=== PATIENT | male | born 1950 | race Caucasian/White ===

== ENCOUNTER 2017-07-26 16:02 | Emergency (ER) | payer MEDICAID ==
--- NOTE | 2017-07-26 16:25 | EDPHY ---
H & P Stated Complaint: N/V, not feeling well x 1 hr; last ETOH last night Time Seen by Provider: 07/26/17 16:24 - Personal History Current Tetanus Diphtheria and Acellular Pertussis (TDAP): Unsure - Medical/Surgical History Hx Asthma: No Hx Chronic Respiratory Disease: No Hx Diabetes: No Hx Cardiac Disease: No Hx Renal Disease: No Hx Cirrhosis: No Hx Alcoholism: Yes Hx HIV/AIDS: No Hx Splenectomy or Spleen Trauma: No Other PMH: testicular surg to remove cyst. ?etoh abuse - Social History Smoking Status: Never smoked Constitutional: Initial Vital Signs Temperature (C) 36.7 C 07/26/17 16:10 Heart Rate 120 H 07/26/17 16:10 Respiratory Rate 18 07/26/17 16:10 Blood Pressure 94/67 L 07/26/17 16:10 O2 Sat (%) 95 07/26/17 16:10 O2 Delivery Mode Room Air Allergies/Adverse Reactions: No Known Allergies Allergy (Verified 07/26/17 16:17) Home Medications: Medication Instructions Recorded NK [No Known Home Meds] 07/26/17 Medical Decision Making ED Course/Re-evaluation: CHIEF COMPLAINT: Nausea, vomiting, weakness HISTORY OF PRESENT ILLNESS: The patient is a 66 y/o male with a history of alcohol abuse complaining of nausea, vomiting, and weakness since waking this morning. He admits to drinking a pint of tequila last night after eating lasagna delivered by [employer]. He's felt poor all morning and has continued to vomit. He now feels shaky and weak. Symptoms feel similar to prior episodes of alcohol withdrawal. He denies co-ingestions, recent illness, recent trauma. REVIEW OF SYSTEMS: A 10 point review of systems was performed and is negative with the exception of the elements mentioned in the history of present illness. PHYSICAL EXAM: HR 115, BP, O2 Sat, RR. Temp noted General Appearance: Alert, appropriate, frail, tremulousness. Head: Atraumatic without scalp tenderness or obvious injury Eyes: Pupils equal, round, reactive to light and accommodation, EOMI, no trauma , no injection. Nose: Atraumatic, no rhinorrhea, clear. Throat: There is no erythema or exudates, no lesions, normal tonsils, mucus membranes moist. Neck: Supple Respiratory: No retractions, no distress, no wheezes, and no accessory muscle use. Lungs are clear to auscultation bilaterally. Cardiovascular: Tachycardic regular rate and rhythm, no murmurs, rubs, or gallops. Good capillary refill all extremities. Gastrointestinal: Abdomen is soft, nontender, non-distended, no masses, no rebound, no guarding, no peritoneal signs. Musculoskeletal: Normal active ROM of all extremities, atraumatic. Neurological: Alert, appropriate, and interactive. The patient non-focal cranial nerves, motor, sensory, and cerebellar exam. Tremulous Skin: No rashes, good turgor, no nodules on palpation. Past medical history: Alcohol abuse Past surgical history: testicular surgery to remove cyst Family history: noncontributory Social history: Lives at [facility] in [place]. Disabled. Prior medical records reviewed including ED visit 11/20/15 for anxiety, nausea. DIAGNOSTICS/PROCEDURES/CRITICAL CARE TIME: The 12 lead EKG was interpreted by myself. Sinus tachycardia. No ischemia. See hard copy and/or "tracemaster" electronic copy for interpretation. DIFFERENTIAL DIAGNOSIS: The differential diagnosis for the patient's nausea and vomiting included but was not limited to gastroenteritis, gastritis, appendicitis, and medication side effect. MEDICAL DECISION MAKING: This is a chronically-ill appearing 66 y/o male with alcoholism who presents with several hours of nausea, vomiting, and tremulousness after drinking a pint of vodka last night. He is tremulous and tachycardic and vomited just as I walked into the room. Abdomen is benign. Presentation seems consistent with alcohol withdrawal, but will rule out cardiac causes as well with IV, labs, EKG. Symptomatic treatment with 1mg IV Ativan, 4mg IV Zofran, 1L IV NS. Labs are unremarkable. Patient is feeling improved after medication administration. I've offered discharge to the [facility] for detox. - Data Points Laboratory Results: Laboratory Results 07/26/17 17:40 07/26/17 17:40 07/26/17 07/26/17 07/26/17 17:40 17:40 17:40 WBC 5.80 10^3/uL 10^3/uL (3.80-9.50) RBC 3.57 10^6/uL L 10^6/uL (4.40-6.38) Hgb 12.6 g/dL L g/dL (13.7-17.5) Hct 36.6 % L % (40.0-51.0) MCV 102.5 fL H fL (81.5-99.8) MCH 35.3 pg H pg (27.9-34.1) MCHC 34.4 g/dL g/dL (32.4-36.7) RDW 13.5 % % (11.5-15.2) Plt Count 168 10^3/uL 10^3/uL (150-400) MPV 11.4 fL fL (8.7-11.7) Neut % (Auto) 62.7 % % (39.3-74.2) Lymph % (Auto) 21.7 % % (15.0-45.0) Nash % (Auto) 11.7 % % (4.5-13.0) Eos % (Auto) 2.6 % % (0.6-7.6) Baso % (Auto) 1.0 % % (0.3-1.7) Nucleat RBC Rel Count 0.0 % % (0.0-0.2) Absolute Neuts (auto) 3.63 10^3/uL 10^3/uL (1.70-6.50) Absolute Lymphs (auto) 1.26 10^3/uL 10^3/uL (1.00-3.00) Absolute Monos (auto) 0.68 10^3/uL 10^3/uL (0.30-0.80) Absolute Eos (auto) 0.15 10^3/uL 10^3/uL (0.03-0.40) Absolute Basos (auto) 0.06 10^3/uL 10^3/uL (0.02-0.10) Absolute Nucleated RBC 0.00 10^3/uL 10^3/uL (0-0.01) Immature Gran % 0.3 % % (0.0-1.1) Immature Gran # 0.02 10^3/uL 10^3/uL (0.00-0.10) PT 13.0 SEC SEC (12.0-15.0) INR 0.96 (0.83-1.16) APTT 25.7 SEC SEC (23.0-38.0) Sodium 147 mEq/L H mEq/L (135-145) Potassium 4.4 mEq/L mEq/L (3.5-5.2) Chloride 109 mEq/L mEq/L (97-110) Carbon Dioxide 18 mEq/l L mEq/l (22-31) Anion Gap 20 mEq/L H mEq/L (8-16) BUN 15 mg/dL mg/dL (7-23) Creatinine 0.8 mg/dL mg/dL (0.7-1.3) Estimated GFR > 60 Glucose 66 mg/dL L mg/dL (70-100) Calcium 9.5 mg/dL mg/dL (8.5-10.4) Total Bilirubin 0.5 mg/dL mg/dL (0.1-1.4) Conjugated Bilirubin 0.4 mg/dL mg/dL (0.0-0.5) Unconjugated Bilirubin 0.1 mg/dL mg/dL (0.0-1.1) AST 56 IU/L IU/L (17-59) ALT 53 IU/L IU/L (21-72) Alkaline Phosphatase 72 IU/L IU/L (38-126) Total Protein 8.3 g/dL H g/dL (6.3-8.2) Albumin 4.7 g/dL g/dL (3.5-5.0) Lipase 337 IU/L H IU/L (23-300) Medications Given: Discontinued Medications Sodium Chloride (Ns) 1,000 mls @ 0 mls/hr IV ONCE ONE PRN Reason: Wide Open Stop: 07/26/17 16:33 Last Admin: 07/26/17 16:48 Dose: 1,000 mls Lorazepam (Ativan Injection) 1 mg IVP EDNOW ONE Stop: 07/26/17 16:33 Last Admin: 07/26/17 16:48 Dose: 1 mg Ondansetron HCl (Zofran) 4 mg IVP EDNOW ONE Stop: 07/26/17 16:33 Last Admin: 07/26/17 16:46 Dose: 4 mg Departure - Departure Disposition: Home, Routine, Self-Care Clinical Impression: Nausea and vomiting Qualifiers: Vomiting type: unspecified Vomiting Intractability: non-intractable Qualified Code(s): R11.2 - Nausea with vomiting, unspecified Alcohol withdrawal Qualifiers: Complication of substance-induced condition: uncomplicated Qualified Code(s): F10.230 - Alcohol dependence with withdrawal, uncomplicated Condition: Good Instructions: Acute Nausea and Vomiting (ED), Alcohol Withdrawal (ED) Additional Instructions: Avoid abuse of alcohol. Follow up with the [facility] for detox. Referrals: [facility] [Outside] - As per Instructions [facility] [Outside] - As per Instructions Report Scribed for: Claudio Conway Report Scribed by: Xiao Rose Date of Report: 07/26/17 Time of Report: 16:44
[2017-07-26] MEDS ORDERED: NS 1,000 ML IV ONE (16:32)
[2017-07-26] MEDS ORDERED: ONDANSETRON 4 MG/2 ML VIAL IVP ONE (16:32)
[2017-07-26] MEDS ORDERED: LORazepam 2 MG/ML INJ IVP ONE (16:32)
--- NOTE | 2017-07-26 16:42 | CPEKG ---
Heart Rate: 102 RR Interval: 588 P-R Interval: 192 QRSD Interval: 106 QT Interval: 372 QTC Interval: 485 P [place]: 57 QRS [place]: -51 T Wave [place]: 50 EKG Severity - ABNORMAL ECG - EKG Impression: SINUS TACHYCARDIA EKG Impression: ATRIAL PREMATURE COMPLEX EKG Impression: LEFT ANTERIOR FASCICULAR BLOCK EKG Impression: BORDERLINE PROLONGED QT INTERVAL Electronically Signed By: Claudio Conway 26-Jul-2017 21:53:52
[2017-07-26 18:10] LABS: PLATELET COUNT 168 10^3/uL (150-400)
[2017-07-26 18:17] LABS: INR 0.96 (0.83-1.16)
[2017-07-26 18:42] VITALS: TEMP 98.4
[2017-07-26 18:44] VITALS: BP 141/82; PULSE 101; RESP 20; O2SAT 97
== END 2017-07-26 19:00 | disposition home or self-care (01) ==
DX: F10.230 Alcohol dependence with withdrawal, uncomplicated (principal)
CPT/HCPCS: 96374; J2060; J2405

== ENCOUNTER 2017-08-07 18:33 | Emergency (ER) | payer MEDICAID ==
[2017-08-07 18:39] VITALS: TEMP 97.7
--- NOTE | 2017-08-07 18:45 | EDPHY ---
H & P Smoking Status: Never smoked Time Seen by Provider: 08/07/17 18:35 HPI/ROS: CHIEF COMPLAINT: Alcohol intoxication, fall, facial trauma HISTORY OF PRESENT ILLNESS: 66-year-old male presents to the emergency department by ambulance after he fell off of a set of bleachers landing on his face. Apparently the patient does not recall the fall. He does admit to drinking alcohol today. Unknown loss of consciousness. Patient denies a headache. Denies chest pain or difficulty breathing. Denies abdominal pain. No reports of vomiting. No visual symptoms. REVIEW OF SYSTEMS: Constitutional: No fever, no chills. Eyes: No double or blurry vision. ENT: No sore throat. Respiratory: No cough, no shortness of breath. Cardiac: No chest pain. Gastrointestinal: No abdominal pain, vomiting or diarrhea. Genitourinary: No dysuria. Musculoskeletal: No neck or back pain. Skin: Facial abrasions. No rashes. Neurological: No headache. (Lazara Toledo) Past Medical/Surgical History: Alcoholism (Lazara Toledo) Social History: Single and lives in [place] (Lazara Toledo) Physical Exam: General Appearance: Alert, no distress. Smells strongly of alcohol. Superficial abrasion noted to the anterior aspect of his nose. He has some dried blood in both the left and the right nostril. No active bleeding from his nose. He also has an abrasion noted to the lateral aspect of the right eye and lateral aspect of his right eyebrow. No suturable lacerations noted. Eyes: Pupils equal and round. Extraocular motions are all intact. ENT: Mouth: Mucous membranes moist. No hemotympanum. Poor dentition. No acute dental fractures noted. No malocclusion. Respiratory: No wheezing, rhonchi, or rales, lungs are clear to auscultation. Cardiovascular: Regular rate and rhythm. Gastrointestinal: Abdomen is soft and nontender, no masses, no rebound or guarding, bowel sounds normal. Neurological: Uncooperative, cannot determine. Skin: Warm and dry, no rashes. Musculoskeletal: Nontender to palpate along the cervical, thoracic or lumbar spine. Neck is supple. Extremities: Full range of motion and no peripheral edema. Psychiatric: no agitation. (Lazara Toledo M) Constitutional: Initial Vital Signs Temperature (C) 36.5 C 08/07/17 18:38 Heart Rate 98 08/07/17 18:38 Respiratory Rate 18 08/07/17 18:38 Blood Pressure 139/94 H 08/07/17 18:38 O2 Sat (%) 98 08/07/17 18:38 O2 Delivery Mode Room Air Allergies/Adverse Reactions: No Known Allergies Allergy (Verified 08/07/17 18:40) Home Medications: Medication Instructions Recorded NK [No Known Home Meds] 07/26/17 Medical Decision Making - Diagnostics Imaging: Discussed imaging studies w/ callisthenics instructor Radiologist - Diagnostics Imaging Results: Imaging Impressions Cervical Spine CT 08/07/17 18:45 Impression: Head CT: 1. No acute intracranial abnormalities. 2. Small right frontal scalp hematoma. 3. Moderate generalized volume loss, more than expected for age. 4. Moderate supratentorial white matter microvascular ischemic changes. Cervical Spine: 1. No acute abnormalities. 2. Multilevel degenerative changes, as above. 3. Cannot exclude ligament, spinal cord and/or vascular abnormalities on this exam. If there is persistent pain or neurologic deficit, consider MRI of the cervical spine. Dr. Valero discussed these findings by telephone with LAZARA TOLEDO on at 1946 hours on 08/07/2017. Head CT 08/07/17 18:45 Impression: Head CT: 1. No acute intracranial abnormalities. 2. Small right frontal scalp hematoma. 3. Moderate generalized volume loss, more than expected for age. 4. Moderate supratentorial white matter microvascular ischemic changes. Cervical Spine: 1. No acute abnormalities. 2. Multilevel degenerative changes, as above. 3. Cannot exclude ligament, spinal cord and/or vascular abnormalities on this exam. If there is persistent pain or neurologic deficit, consider MRI of the cervical spine. Dr. Valero discussed these findings by telephone with LAZARA TOLEDO on at 1946 hours on 08/07/2017. ED Course/Re-evaluation: 66-year-old male presents to the emergency department with facial and head injury and alcohol intoxication. CT imaging of the head and cervical spine were negative for intracranial bleeding or fractures. Patient's wounds were cleansed and dressed. No sutures needed. The patient was able to ambulate. He had no complaints. The patient will be discharged. ( Lazara Toledo) Differential Diagnosis: Altered mental status including but not limited to hypoglycemia, infectious process, electrolyte abnormality, head injury and intoxicants. Head injury including but not limited to concussion, skull fracture, intraparenchymal contusion, subarachnoid, subdural and epidural hematoma. (Lazara Toledo) Other Provider: PHYSICIAN DOCUMENTATION: The patient was evaluated and managed by the Physician Copy Writer and myself. I have reviewed the chart and agree with the findings and plan of care as documented. In addition, I examined the patient myself at on arrival. History confirmed as fall from standing. Physical findings as follows: Facial abrasions , alert answers questions appropriately. I am the secondary supervising physician. (Chance Clark) - Data Points Medications Given: Discontinued Medications Chlordiazepoxide (Librium 25 Mg Prepack#6) 1 btl TAKEHOME EDNOW ONE Stop: 08/07/17 20:03 Last Admin: 08/07/17 20:07 Dose: 1 btl Departure - Departure Disposition: Home, Routine, Self-Care Clinical Impression: Facial contusion Qualifiers: Encounter type: initial encounter Qualified Code(s): S00.83XA - Contusion of other part of head, initial encounter Facial abrasion Qualifiers: Encounter type: initial encounter Qualified Code(s): S00.81XA - Abrasion of other part of head, initial encounter Head injury Qualifiers: Encounter type: initial encounter Qualified Code(s): S09.90XA - Unspecified injury of head, initial encounter Alcohol intoxication Qualifiers: Complication of substance-induced condition: uncomplicated Qualified Code(s): F10.920 - Alcohol use, unspecified with intoxication, uncomplicated Cervical strain Qualifiers: Encounter type: initial encounter Qualified Code(s): S16.1XXA - Strain of muscle, fascia and tendon at neck level, initial encounter Condition: Good Instructions: Chlordiazepoxide/Clidinium (By mouth), Cervical Strain (ED), Head Injury (ED), Alcohol Intoxication (ED) Additional Instructions: You should not drink alcohol in excess. You should avoid any activity that might put you at risk for another head injury for at least 1 week. Referrals: [facility] [Outside] - As per Instructions Marko Vicente MD [[facility] [place] Primary Care Provider] - 2-3 days, call for appt. ( Primary care provider donkey engine firer/fireman)
[2017-08-07 19:41] VITALS: BP 123/88; PULSE 93; RESP 20; O2SAT 93
[2017-08-07] MEDS ORDERED: CHLORDIAZEPOXIDE 25MG PREPK#6 BTL TAKEHOME ONE (20:02)
== END 2017-08-07 20:12 | disposition home or self-care (01) ==
LOC: EDUNIT#
DX: S09.90XA Unspecified injury of head, initial encounter (principal); S00.83XA Contusion of other part of head, initial encounter; S00.81XA Abrasion of other part of head, initial encounter; S16.1XXA Strain of muscle, fascia and tendon at neck level, initial encounter; F10.920 Alcohol use, unspecified with intoxication, uncomplicated; W18.39XA Other fall on same level, initial encounter; Y92.89 Other specified places as the place of occurrence of the external cause; Y99.8 Other external cause status; Y93.89 Activity, other specified

== ENCOUNTER 2017-08-09 14:48 | Emergency (ER) | payer MEDICAID ==
[2017-08-09 14:54] VITALS: BP 143/105
--- NOTE | 2017-08-09 15:01 | EDPHY ---
H & P Time Seen by Provider: 08/09/17 14:54 HPI/ROS: CHIEF COMPLAINT: Alcohol intoxication, medical [facility] HISTORY OF PRESENT ILLNESS: 66-year-old male history of homelessness, alcoholism, arrives via police and route to the [facility] however place noticed abrasions to his head and brought him to the ER. Patient explains that he fell 2 days ago. He denies new or injury. The patient was seen the ER at that time had negative CT imaging of the head and cervical spine. He denies complaints of pain or discomfort . No seizure. No hallucination. PRIMARY CARE PROVIDER: REVIEW OF SYSTEMS: A ten point review of systems was performed and is negative with the exception of the items mentioned in the HPI PAST MEDICAL/SURGICAL HISTORY: no anticoagulant use, history of alcoholism. SOCIAL HISTORY: Positive for antecedent alcohol use PHYSICAL EXAM 1) GENERAL: Well-developed, well-nourished, alert and oriented. Appears to be in no acute distress. Answering questions appropriately. 2) HEAD: Normocephalic, multiple subacute abrasions to the forehead and tip of nose 3) HEENT: Pupils equal, round, reactive to light bilaterally. Negative Horners. Nasopharynx, oropharynx, clear. No deformity or angulation of nose. No septal hematoma. No rhinorrhea. No oral trauma. Ears bilaterally with normal tympanic membranes. No hemotympanum. No fluid or blood in the external auditory canal. No raccoon eyes. No Pineda sign. TMJ bilaterally nontender, facial bones nontender including the zygomatic arch, maxilla mandible. 4) NECK: No cervical collar is on. Posterior cervical spine is nontender, no stepoff, no effusion. Full range of motion which does not elicit any midline cervical spine pain, no posterior midline tenderness, no step-off. 5) LUNGS: Clear to auscultation bilaterally, no wheezes, no rhonchi, no retractions. No obvious signs of trauma. No chest wall pain. No flaring, no grunting. Moving symmetrically. No crepitus. 6) HEART: [Regular rate and rhythm, 7) ABDOMEN: No guarding, no rebound, no focal tenderness, no peritoneal signs, no signs of trauma, no ecchymosis 8) MUSCULOSKELETAL: Moving all extremities, no focal areas of tenderness, no obvious trauma. 9) BACK: No midline vertebral tenderness, no fluctuance, no step-off, no obvious trauma, no visual or palpable abnormality. 10) SKIN: No laceration. No abrasion DIFFERENTIAL DIAGNOSIS: Not necessarily in any particular order, my differential diagnosis includes, but is not limited to, concussion, skull fracture, intraparenchymal contusion, subarachnoid, subdural and epidural hematoma. The patient understands that this diagnosis is provisional and can never be 100% accurate. Smoking Status: Never smoked Constitutional: Initial Vital Signs Temperature (C) 36.4 C 08/09/17 14:52 Heart Rate 129 H 08/09/17 14:52 Respiratory Rate 16 08/09/17 14:52 Blood Pressure 143/105 H 08/09/17 14:52 O2 Sat (%) 98 08/09/17 14:52 O2 Delivery Mode Room Air Allergies/Adverse Reactions: No Known Allergies Allergy (Verified 08/07/17 18:40) Home Medications: Medication Instructions Recorded NK [No Known Home Meds] 07/26/17 MDM/Departure - [facility] ED Course/Re-evaluation: 2:50 p.m.: I reviewed the patient's old medical records. I reviewed is negative CT imaging of the head and cervical spine 2 days ago in emergency department. This time he is answering questions appropriately. Plan will be discharge with police officers to [facility]. I do not think that repeat imaging indicated. Care of patient under supervision of primary supervising physician Dr Morgan. - Depart Disposition: Home, Routine, Self-Care Clinical Impression: Facial contusion Qualifiers: Encounter type: initial encounter Qualified Code(s): S00.83XA - Contusion of other part of head, initial encounter Alcohol intoxication Qualifiers: Complication of substance-induced condition: uncomplicated Qualified Code(s): F10.920 - Alcohol use, unspecified with intoxication, uncomplicated Condition: Good Instructions: Chlordiazepoxide (By mouth), Alcohol Intoxication (ED), Facial Contusion (ED) Referrals: [facility] [Outside] - As per Instructions
[2017-08-09] MEDS ORDERED: CHLORDIAZEPOXIDE 25MG PREPK#6 BTL TAKEHOME ONE (15:02)
== END 2017-08-09 15:19 | disposition home or self-care (01) ==
DX: S00.83XA Contusion of other part of head, initial encounter (principal); F10.920 Alcohol use, unspecified with intoxication, uncomplicated; W18.39XA Other fall on same level, initial encounter

== ENCOUNTER 2017-08-15 19:34 | Emergency (ER) | payer MEDICAID ==
--- NOTE | 2017-08-15 19:43 | EDPHY ---
H & P Time Seen by Provider: 08/15/17 19:37 HPI/ROS: CHIEF COMPLAINT: Alcohol intoxication HISTORY OF PRESENT ILLNESS: Patient is a 66-year-old male who presents emergency department after being found intoxicated outside at [facility]. He was laying on the ground. The patient has no complaints. Patient states"I feel fantastic."He states he was drinking alcohol tonight. He denies drug use. He has no chest pain or shortness of breath. No abdominal pain. No nausea or vomiting. REVIEW OF SYSTEMS: My complete review of systems is negative except as mentioned in the HPI. Past Medical/Surgical History: Includes alcohol intoxication Social history: The patient is homeless Smoking Status: Never smoked Physical Exam: Vitals noted GENERAL: Well-appearing, in no acute distress, alert. HEENT: Eyes normal to inspection, normal pharynx, no signs of dehydration. No signs of head trauma NECK: No thyromegaly, supple. No spinal tenderness palpation RESPIRATORY: Clear to auscultation bilaterally, no rales, rhonchi or wheezing. CVS: Regular rate and rhythm, no rubs, murmurs, or gallops. ABDOMEN: Soft, nontender, nondistended, no organomegaly. BACK: Normal to inspection, no CVA tenderness. SKIN: Normal color, no rash, warm, dry. No pallor. EXTREMITIES: No pedal edema, no calf tenderness, no Homans sign or cords, no joint swelling. NEURO/PSYCH: Intoxicated appearing. Moves all extremities. No obvious focal deficit. Constitutional: Initial Vital Signs Temperature (C) 36.8 C 08/15/17 19:40 Heart Rate 103 H 08/15/17 19:40 Respiratory Rate 16 08/15/17 19:40 Blood Pressure 125/78 H 08/15/17 19:40 O2 Sat (%) 96 08/15/17 19:40 O2 Delivery Mode Room Air Allergies/Adverse Reactions: No Known Allergies Allergy (Verified 08/15/17 19:42) Home Medications: Medication Instructions Recorded NK [No Known Home Meds] 07/26/17 Medical Decision Making ED Course/Re-evaluation: In the emergency department I met EMS on arrival. I took report from the medic. I do not feel the patient needs laboratory studies or imaging at this time. He is without complaints. He appears intoxicated. He has a history of intoxication. Patient was able to ambulate. He was sent to the [facility]. Patient feels was fine with this plan. The patient was given warnings prior to leaving. Differential Diagnosis: My differential includes but is not limited to alcohol intoxication, drug abuse , closed-head injury, electrolyte abnormality, sugar abnormality, dehydration, bacteremia, sepsis, pneumonia Departure - Departure Disposition: Home, Routine, Self-Care Clinical Impression: Alcohol intoxication Qualifiers: Complication of substance-induced condition: uncomplicated Qualified Code(s): F10.920 - Alcohol use, unspecified with intoxication, uncomplicated Condition: Good Instructions: Abuse of Alcohol (ED) Additional Instructions: Slowly decrease your intake of alcohol. Return with worsening symptoms or concerns. Referrals: [facility],. [Clinic] - 5-7 days, call for appt.
[2017-08-15 21:40] VITALS: BP 132/90
== END 2017-08-15 21:55 | disposition home or self-care (01) ==
LOC: EDUNIT#
DX: F10.920 Alcohol use, unspecified with intoxication, uncomplicated (principal)

== ENCOUNTER 2017-10-25 11:56 | Emergency (ER) | payer MEDICAID ==
[2017-10-25] MEDS ORDERED: LORazepam 2 MG/ML INJ IVP ONE ×2 (12:06→13:08)
[2017-10-25] MEDS ORDERED: THIAMINE HCL 100 MG TAB PO ONE (12:06)
[2017-10-25] MEDS ORDERED: FOLIC ACID 1 MG TAB PO ONE (12:07)
[2017-10-25] MEDS ORDERED: NS 1,000 ML IV ONE (12:07)
--- NOTE | 2017-10-25 12:10 | EDPHY ---
H & P Time Seen by Provider: 10/25/17 12:01 HPI/ROS: CHIEF COMPLAINT: "I think I am withdrawing" HISTORY OF PRESENT ILLNESS: 66-year-old homeless male history of alcoholism last drink of alcohol 24 hr ago arrives via ambulance complaining of tremor. No complaints of pain Denies: Hallucination, seizure, suicidal homicidal ideation. PRIMARY CARE PROVIDER: REVIEW OF SYSTEMS: A ten point review of systems was performed and is negative with the exception of the items mentioned in the HPI PAST MEDICAL & SURGICAL HISTORY: Alcoholism SOCIAL HISTORY: Last drink of alcohol 24 hr ago PHYSICAL EXAM (Prior to examination, patient consented to physical exam, hands were washed and my usual and customary physical exam procedures followed) 1) GENERAL: Well-developed, well-nourished, alert and oriented. Appears anxious 2) HEAD: Normocephalic, atraumatic 3) HEENT: Pupils equal, round, reactive to light bilaterally. Sclera anicteric. 4) NECK: Full range of motion, no meningeal signs. 5) LUNGS: Clear auscultation bilaterally, no wheezes, no rhonchi, no retractions. 6) HEART: Regular rate and rhythm, no murmur, no heave, no gallop. 7) ABDOMEN: No guarding, no rebound, no focal tenderness, 8) MUSCULOSKELETAL: Moving all extremities, no focal areas of tenderness, no obvious trauma. No peripheral edema or discoloration. 9) BACK: No visual or palpable abnormality. 10) SKIN: No rash, no petechiae. 11) Psychiatric: Patient is oriented X 3, there is no agitation. Tremulous DIFFERENTIAL DIAGNOSIS: In no particular include but limited to acute alcohol withdrawal, alcoholic hallucinosis, hepatic encephalopathy - Personal History Tetanus Vaccine Date: < 10 YEARS - Medical/Surgical History Hx Asthma: No Hx Chronic Respiratory Disease: No Hx Diabetes: No Hx Cardiac Disease: No Hx Renal Disease: No Hx Cirrhosis: No Hx Alcoholism: Yes Hx HIV/AIDS: No Hx Splenectomy or Spleen Trauma: No Other PMH: testicular surg to remove cyst. etoh abuse - Social History Smoking Status: Never smoked Constitutional: Initial Vital Signs Temperature (C) 36.9 C 10/25/17 12:09 Heart Rate 103 H 10/25/17 12:09 Respiratory Rate 20 10/25/17 12:09 Blood Pressure 129/64 H 10/25/17 12:09 O2 Sat (%) 96 10/25/17 12:09 O2 Delivery Mode Room Air Allergies/Adverse Reactions: No Known Allergies Allergy (Verified 08/15/17 19:42) Home Medications: Medication Instructions Recorded NK [No Known Home Meds] 07/26/17 Medical Decision Making ED Course/Re-evaluation: 12:08 p.m.: Patient appears to be more than likely acute alcohol withdrawal, he is tremulous without hallucination, without agitation. Doubt delirium tremens at this time. Will administer benzodiazepines and re-evaluate. 1:09 p.m.: Re-evaluation after 2 mg of Ativan, oral folate and thiamine. He is feeling improvement. Heart rate in the 90s. He still remains tremulous. He states that he is feeling much better and he would like to be discharged after a another dose of Ativan. He does not want to go to the [facility]. Had a lengthy discussion with him informed him of the risks of attempting to detoxify from alcohol without supervision and without benzodiazepines. I do not think that sending the patient home with benzodiazepines is appropriate given his history of alcoholism. 1:30 p.m.: Re-evaluation. He would like to leave. I recommend we attempt to ambulate to observe his ambulation status. Have offered to send him to the [facility]. He would like to go home. 1:50 p.m.: Patient observed ambulating without assistance with stable steady gait. He would like to leave. He does not want to go to the [facility]. He is not interested in resources for alcohol recovery. - Data Points Medications Given: Discontinued Medications Folic Acid (Folic Acid) 1 mg PO EDNOW ONE Stop: 10/25/17 12:08 Last Admin: 10/25/17 12:39 Dose: 1 mg Sodium Chloride (Ns) 1,000 mls @ 0 mls/hr IV ONCE ONE PRN Reason: Wide Open Stop: 10/25/17 12:08 Last Admin: 10/25/17 12:39 Dose: 1,000 mls Lorazepam (Ativan Injection) 2 mg IVP EDNOW ONE Stop: 10/25/17 12:07 Last Admin: 10/25/17 12:39 Dose: 2 mg Lorazepam (Ativan Injection) 2 mg IVP EDNOW ONE Stop: 10/25/17 13:09 Last Admin: 10/25/17 13:38 Dose: 2 mg Thiamine HCl (Vitamin B-1) 100 mg PO EDNOW ONE Stop: 10/25/17 12:07 Last Admin: 10/25/17 12:39 Dose: 100 mg Departure - Departure Disposition: Home, Routine, Self-Care Clinical Impression: Alcohol withdrawal Qualifiers: Complication of substance-induced condition: uncomplicated Qualified Code(s): F10.230 - Alcohol dependence with withdrawal, uncomplicated Condition: Good Instructions: Alcohol Withdrawal (ED) Additional Instructions: You have declined further medication or care from the emergency department. You have declined going to the [facility]. Stopping alcohol suddenly can be dangerous and sometimes deadly. If you develop hallucinations, if you develop seizures, call 911. Please consider becoming sober from alcohol in a controlled environment. Referrals: [facility] [Outside] - As per Instructions
[2017-10-25 14:03] VITALS: BP 161/88
== END 2017-10-25 14:03 | disposition home or self-care (01) ==
LOC: EDUNIT#
DX: F10.230 Alcohol dependence with withdrawal, uncomplicated (principal)
CPT/HCPCS: 96374; J2060

== ENCOUNTER 2017-11-07 02:53 | Emergency (ER) | payer MEDICAID ==
--- NOTE | 2017-11-07 03:58 | EDPHY ---
H & P Stated Complaint: ETOH, sleeping on side of road Time Seen by Provider: 11/07/17 03:26 HPI/ROS: CHIEF COMPLAINT: Alcohol intoxication HISTORY OF PRESENT ILLNESS: The patient was found on the side of the road. He was lying on the ground and when roused, he appeared to be intoxicated. He denied any injuries. He has a warrant out for his arrest and is brought in by police for medical clearance for assisted. Patient denies any injuries, denies loss of consciousness, denies any recent trauma. Patient denies coingestion, patient denies suicidal or homicidal behavior. REVIEW OF SYSTEMS: Constitutional: No fever, no chills. Eyes:No visual changes. ENT: No sore throat. Respiratory: No cough, no shortness of breath. Cardiac: No chest pain. Gastrointestinal: No abdominal pain, vomiting or diarrhea. Genitourinary: No hematuria. Musculoskeletal: No back pain. Skin: No rashes. Neurological: No headache. PAST MEDICAL HISTORY: Chronic alcohol abuse PAST SURGICAL HISTORY: Some sort of testicular operation SOCIAL HISTORY: Living in [place] for 40 years, moved here from [place] PHYSICAL EXAM: General Appearance: Alert, well hydrated, appropriate, and quite disheveled Head: Atraumatic without scalp tenderness or obvious injury Eyes: Pupils equal, round, reactive to light, no injection. Ears: Clear bilaterally, no perforation, normal landmarks Nose: Atraumatic, no rhinorrhea, clear. Throat: mucus membranes moist. Neck: Supple, non-tender, no lymphadenopathy. Respiratory: No retractions, no distress, no wheezes, and no accessory muscle use. Lungs are clear to auscultation bilaterally. Cardiovascular: Regular rate and rhythm, no murmurs, rubs, or gallops. Gastrointestinal: Abdomen is soft, non-tender, non-distended Musculoskeletal: Normal active ROM of all extremities, atraumatic. Neurological: Alert, appropriate, and interactive. Moves all extremities equally. Skin: No rashes, good turgor, no nodules on palpation. MEDICAL DECISION MAKING: I serially examined this patient since the patient's arrival here in the emergency department. The patient continues to become more and more sober with each examination. I serially questioned the patient and the patient's story given initially has not changed. The patient still denies any trauma, any head injury, and any illicit drug use. At this point, the patient is walking the department freely and is clinically sober. We're discharging the patient with the police to assisted. Differential diagnosis includes alcohol intoxication, polysubstance abuse, less likely head injury given no external signs of trauma normal neurologic examination. Source: Patient, EMS Exam Limitations: Intoxication - Personal History Current Tetanus/Diphtheria Vaccine: Yes Current Tetanus Diphtheria and Acellular Pertussis (TDAP): Yes Tetanus Vaccine Date: < 10 YEARS - Medical/Surgical History Hx Asthma: No Hx Chronic Respiratory Disease: No Hx Diabetes: No Hx Cardiac Disease: No Hx Renal Disease: No Hx Cirrhosis: No Hx Alcoholism: Yes Hx HIV/AIDS: No Hx Splenectomy or Spleen Trauma: No Other PMH: testicular surg to remove cyst. etoh abuse - Social History Smoking Status: Never smoked Constitutional: Initial Vital Signs Temperature (C) 36.6 C 11/07/17 02:57 Heart Rate 96 11/07/17 02:57 Respiratory Rate 16 11/07/17 02:57 Blood Pressure 128/71 H 11/07/17 02:57 O2 Sat (%) 96 11/07/17 02:57 O2 Delivery Mode Room Air Allergies/Adverse Reactions: No Known Allergies Allergy (Verified 08/15/17 19:42) Home Medications: Medication Instructions Recorded NK [No Known Home Meds] 07/26/17 Departure - Departure Disposition: Home, Routine, Self-Care Clinical Impression: Alcohol intoxication Qualifiers: Complication of substance-induced condition: with delirium Qualified Code(s): F10.921 - Alcohol use, unspecified with intoxication delirium Condition: Good Instructions: Alcohol Intoxication (ED) Additional Instructions: medically cleared for assisted Referrals: [facility] [Outside] - As per Instructions
[2017-11-07 04:21] VITALS: BP 121/71
== END 2017-11-07 04:21 | disposition home or self-care (01) ==
LOC: EDUNIT#
DX: F10.921 Alcohol use, unspecified with intoxication delirium (principal)

== ENCOUNTER 2018-02-19 13:25 | Emergency (ER) | payer MEDICAID ==
[2018-02-19] MEDS ORDERED: LORazepam 2 MG/ML INJ IVP PRN (13:30)
[2018-02-19] MEDS ORDERED: LORazepam 1 MG TAB PO PRN (13:30)
[2018-02-19] MEDS ORDERED: NS 1,000 ML IV ONE ×2 (13:31→14:40)
--- NOTE | 2018-02-19 13:40 | EDPHY ---
General Time Seen by Provider: 02/19/18 13:25 Narrative: CHIEF COMPLAINT: Alcohol withdrawal, fall HISTORY OF PRESENT ILLNESS: Patient arrives by EMS and is seen at time of arrival. He complains of alcohol withdrawal and a fall. He reports daily ingestion of 1 pint tequila for the past 40 years. He states he stopped drinking yesterday at 12:00 p.m. With no other ingestion. He has felt very shaky, anxious and "like I am withdrawing." He also reports of fall yesterday. He says he was walking on treadalong when he tripped on a sidewalk, landing on his face. He has some dental pain on the lower teeth. No nausea vomiting. No visual disturbance. He has felt very shaky and nauseated today. He has no chest pain. No shortness of breath. Some mild right upper quadrant abdominal pain at times. No use of anticoagulants. No other associated complaints or modifying factors. REVIEW OF SYSTEMS: 10 systems were reviewed and negative with the exception of the elements mentioned in the history of present illness. PCP: None SPECIALISTS: None PAST MEDICAL HISTORY: Alcohol dependency. Testicular cyst PAST SURGICAL HISTORY: Testicular cystectomy SOCIAL HISTORY: Occasional tobacco use. Daily tequila ingestion. FAMILY HISTORY: Noncontributory EXAMINATION: General Appearance: Alert, no distress. Unkempt. Tremulous. Conversing appropriately Head: normocephalic, atraumatic. No Pineda sign. No raccoon eyes. No depression or deformity. Eyes: Pupils equal and round, no conjunctival pallor or injection. EOM symmetric without nystagmus or dysconjugate gaze ENT, Mouth: Mucous membranes moist. Very poor dentition. There is ecchymosis to the lower central incisors. No fractured teeth. No injury to the alveolar ridge. No trismus. Neck: Normal inspection, supple, non-tender. No crepitus or deformity. Midline trachea. Respiratory: Mild rhonchi. No wheezing. No crackles or diminishment. No consolidation Cardiovascular: Tachycardic rate. Regular rhythm. No murmur. Gastrointestinal: Abdomen is soft and nontender Back: non-tender, no bony abnormalities Neurological: GCS 15. A&O, nonfocal, resting tremor. Normal [id number]. No pronator drift. No seizure activity Skin: Warm and dry, no rash. Superficial abrasions to the upper extremities. Extremities: Nontender, no pedal edema. Range of motion is symmetric. Psychiatric: Mood and affect normal DIFFERENTIAL DIAGNOSES: Including but not limited to acute alcohol withdrawal, alcohol dependency, intracranial hemorrhage, concussion, dental fracture, dehydration, alcoholic ketoacidosis MDM: 1:25 p.m. Alcohol dependency with likely alcohol withdrawal. No seizure-like activity witnessed thus far. He is tachycardic and somewhat tremulous. Initial CIWA score is 10 and he has been placed on the ETOH withdrawal protocol. He is on a environmental monitoring specialist and in no acute distress. 2:25 p.m. Patient re-evaluated. He is feeling significantly better after the 2 mg Ativan. Laboratory studies are not yet being run, RN has contacted the lab to investigate. 2:40 p.m. Laboratory studies reveal mild hyperkalemia, hyperglycemia and mild anion gap. I have ordered an EKG and a magnesium level. I have also re-evaluated the patient. He is mildly tremulous and we are obtaining a 2nd CIWA score. 2:50 p.m. EKG obtained. Second CIWA score is 5 after total 2 mg Ativan IV. I discussed with Dr. Soni. Plan is to continue IV fluid resuscitation recheck his BMP after this. 4:00 p.m. Patient has received his 2nd L IV fluid and I have rechecked his basic metabolic panel. His anion gap is closed. Electrolytes are normal. He is ambulatory. His CIWA score continues to decrease. There is no evidence of encephalopathy, delirium tremens or need for admission to the hospital. I do feel he is stable to be discharged to the [facility] [place] with Librium taper. He is agreeable to this. He will be discharged in stable condition and transferred there by cab. EKG interpretation: Dr. Soni Sinus rhythm with borderline prolonged p.r.n. QT intervals. No acute ischemia. SUPERVISION: Patient was independently examined, but I discussed the case with my secondary supervising physician Dr. Soni CONSULTATION: None. - History Smoking Status: Never smoked - Objective Vital Signs: Initial Vital Signs Temperature (C) 98.2 F 02/19/18 13:33 Heart Rate 119 H 02/19/18 13:33 Respiratory Rate 20 02/19/18 13:33 Blood Pressure 136/107 H 02/19/18 13:33 O2 Sat (%) 100 02/19/18 13:33 O2 Delivery Mode Room Air Allergies/Adverse Reactions: No Known Allergies Allergy (Verified 02/19/18 13:37) Home Medications: Medication Instructions Recorded NK [No Known Home Meds] 07/26/17 Laboratory Results: Laboratory Results 02/19/18 13:31 02/19/18 02/19/18 02/19/18 15:30 13:31 13:31 WBC 5.77 10^3/uL 10^3/uL (3.80-9.50) RBC 3.62 10^6/uL L 10^6/uL (4.40-6.38) Hgb 12.3 g/dL L g/dL (13.7-17.5) Hct 36.3 % L % (40.0-51.0) MCV 100.3 fL H fL (81.5-99.8) MCH 34.0 pg pg (27.9-34.1) MCHC 33.9 g/dL g/dL (32.4-36.7) RDW 13.3 % % (11.5-15.2) Plt Count 137 10^3/uL L 10^3/uL (150-400) Sodium Pending 141 mEq/L mEq/L (135-145) Potassium Pending 5.4 mEq/L H mEq/L (3.3-5.0) Chloride Pending 105 mEq/L mEq/L (97-110) Carbon Dioxide Pending 17 mEq/l L mEq/l (22-31) Anion Gap Pending 19 mEq/L H mEq/L (6-14) BUN Pending 16 mg/dL mg/dL (7-23) Creatinine Pending 0.7 mg/dL mg/dL (0.7-1.3) Estimated GFR Pending > 60 Glucose Pending 189 mg/dL H mg/dL (70-100) Calcium Pending 9.6 mg/dL mg/dL (8.5-10.4) Magnesium Pending Lipase 342 IU/L H IU/L (23-300) Specimen Hemolysis 284 Ethyl Alcohol 63 mg/dL H mg/dL (0-10) Medications Given: Lorazepam (Ativan Injection) 0 mg IVP Q1H PRN; Protocol PRN Reason: Alcohol Withdrawal w/IV access Stop: 02/20/18 01:30 Last Admin: 10/16/18 13:52 Dose: 2 mg Discontinued Medications Sodium Chloride (Ns) 1,000 mls @ 0 mls/hr IV EDNOW ONE; Wide Open PRN Reason: Protocol Stop: 02/19/18 13:32 Last Admin: 02/19/18 13:52 Dose: 1,000 mls Sodium Chloride (Ns) 1,000 mls @ 0 mls/hr IV EDNOW ONE; Wide Open PRN Reason: Protocol Stop: 02/19/18 14:41 Last Admin: 02/19/18 14:42 Dose: 1,000 mls Departure - Departure Disposition: Home, Routine, Self-Care Clinical Impression: Alcohol dependence Qualifiers: Substance use status: uncomplicated Qualified Code(s): F10.20 - Alcohol dependence, uncomplicated Alcohol withdrawal Qualifiers: Complication of substance-induced condition: uncomplicated Qualified Code(s): F10.230 - Alcohol dependence with withdrawal, uncomplicated Condition: Good Instructions: Alcohol Withdrawal (ED), Alcohol Dependence (ED), Chlordiazepoxide (By mouth) Referrals: Krista Weston MD [Medical Doctor] - As per Instructions [facility],. [Clinic] - As per Instructions [facility] [Outside] - As per Instructions
[2018-02-19] MEDS ORDERED: CHLORDIAZEPOXIDE 25MG PREPK#6 BTL TAKEHOME ONE (16:03)
[2018-02-19 16:52] VITALS: BP 146/105
--- NOTE | 2018-02-20 14:27 | CPEKG ---
Test Reason : OPEN Blood Pressure : / mmHG Vent. Rate : 092 BPM Atrial Rate : 092 BPM P-R Int : 210 ms QRS Dur : 108 ms QT Int : 397 ms P-R-T Axes : 035 -48 013 degrees QTc Int : 492 ms Sinus rhythm Borderline prolonged HI interval LAD, consider left anterior fascicular block Low voltage, extremity leads Borderline prolonged QT interval Confirmed by Matt Dejesus ([id number]) on 02/20/2018 2:27:42 PM Referred By: Confirmed By:Matt Dejesus
== END 2018-02-19 16:56 | disposition home or self-care (01) ==
LOC: EDUNIT#
DX: F10.230 Alcohol dependence with withdrawal, uncomplicated (principal); E86.9 Volume depletion, unspecified; F17.200 Nicotine dependence, unspecified, uncomplicated
CPT/HCPCS: 96374; G0480; J2060

== ENCOUNTER 2018-02-21 10:06 | Emergency (ER) | payer MEDICAID ==
[2018-02-21] MEDS ORDERED: LORazepam 1 MG TAB PO ONE (10:26)
[2018-02-21] MEDS ORDERED: FOLIC ACID 1 MG TAB PO ONE (10:26)
[2018-02-21] MEDS ORDERED: THIAMINE HCL 100 MG TAB PO ONE (10:26)
--- NOTE | 2018-02-21 10:33 | EDPHY ---
H & P Stated Complaint: Hit head, denies LOC, nauseous and nervous. Unk last ETOH. Time Seen by Provider: 02/21/18 10:19 HPI/ROS: CHIEF COMPLAINT: "I hit my head" HISTORY OF PRESENT ILLNESS: 67-year-old male arrives via a friend who gave him a ride to the ER, complaining of head injury after he fell yesterday. States that last drink of alcohol was 24 hr ago, yesterday he was walking, tripped on a crack, fell forward impacting the front of his head. May have impacted his teeth. Positive loss of consciousness at that time. Been complaining of nonprogressive holocephalic headache ever since. This was not a seizure according to patient. This was a mechanical incident secondary to incongruent he on the sidewalk. No midline C-spine pain. No peripheral paresthesia, weakness, numbness. No chest pain or trauma. No back pain or trauma. PRIMARY CARE PROVIDER: [facility] REVIEW OF SYSTEMS: 10 systems reviewed and negative with the exception of the elements mentioned in the history of present illness PAST MEDICAL/SURGICAL HISTORY: History of alcoholism typically drinks 1 pt of Tequila per day SOCIAL HISTORY: Last drink of alcohol was approximately 24 hr ago, history of alcoholism PHYSICAL EXAM 1) GENERAL: Well-developed, well-nourished, alert and oriented. Appears to be in no acute distress. Answering questions appropriately. Tremulous 2) HEAD: Normocephalic, atraumatic 3) HEENT: Pupils equal, round, reactive to light bilaterally. Negative Horners. Nasopharynx, oropharynx, clear. No deformity or angulation of nose. No septal hematoma. No rhinorrhea. No oral trauma. Ears bilaterally with normal tympanic membranes. No hemotympanum. No fluid or blood in the external auditory canal. No raccoon eyes. No Pineda sign. Poor dentition, no gross malocclusion TMJ bilaterally nontender, facial bones nontender including the zygomatic arch, maxilla mandible. 4) NECK: No cervical collar is on. Posterior cervical spine is nontender, no stepoff, no effusion. Full range of motion which does not elicit any midline cervical spine pain, no posterior midline tenderness, no step-off. 5) LUNGS: Clear to auscultation bilaterally, no wheezes, no rhonchi, no retractions. No obvious signs of trauma. No chest wall pain. No flaring, no grunting. Moving symmetrically. No crepitus. 6) HEART: [Regular rate and rhythm, 7) ABDOMEN: No guarding, no rebound, no focal tenderness, no peritoneal signs, no signs of trauma, no ecchymosis 8) MUSCULOSKELETAL: Moving all extremities, no focal areas of tenderness, no obvious trauma. 9) BACK: No midline vertebral tenderness, no fluctuance, no step-off, no obvious trauma, no visual or palpable abnormality. 10) SKIN: No laceration. No abrasion 11) psychiatric: Tremulous, answering questions appropriately, alert oriented person place time events DIFFERENTIAL DIAGNOSIS: Not necessarily in any particular order, my differential diagnosis includes, but is not limited to, concussion, skull fracture, intraparenchymal contusion, subarachnoid, subdural and epidural hematoma. The patient understands that this diagnosis is provisional and can never be 100% accurate. - Personal History Current Tetanus/Diphtheria Vaccine: Yes Tetanus Vaccine Date: < 10 YEARS - Medical/Surgical History Hx Asthma: No Hx Chronic Respiratory Disease: No Hx Diabetes: No Hx Cardiac Disease: No Hx Renal Disease: No Hx Cirrhosis: No Hx Alcoholism: Yes Hx HIV/AIDS: No Hx Splenectomy or Spleen Trauma: No Other PMH: testicular surg to remove cyst. etoh abuse - Social History Smoking Status: Never smoked Constitutional: Initial Vital Signs Temperature (C) 37.0 C 02/21/18 10:15 Heart Rate 109 H 02/21/18 10:15 Respiratory Rate 18 02/21/18 10:15 Blood Pressure 145/88 H 02/21/18 10:15 O2 Sat (%) 98 02/21/18 10:15 O2 Delivery Mode Room Air Allergies/Adverse Reactions: No Known Allergies Allergy (Verified 02/21/18 10:13) Home Medications: Medication Instructions Recorded NK [No Known Home Meds] 07/26/17 Medical Decision Making - Diagnostics Imaging Results: images reviewed by myself ED Course/Re-evaluation: 10:30 a.m.: Will obtain CT imaging of the head. No midline C-spine pain or neurologic deficits. He is currently tremulous, suspect acute alcohol withdrawal. Doubt delirium tremens. Doubt alcoholic hallucinosis. Will administer oral Ativan, thiamine, folate as well as provide food and re- evaluate. I saw this patient independently based on established practice protocols. Care of patient under supervision of secondary supervising physician Dr Dr. Jeanette Restrepo with whom I discussed case. 12:06 p.m.: Re-evaluation after oral Ativan. States that he is feeling improvement, tremors have resolved, heart rate in the 90s. Discussed his negative CT imaging showing no posttraumatic sequelae. He would like to be discharged home. I offered to [facility] the [facility] which he declines. I discussed the dangers of quitting alcohol cold turkey given his history of frequent alcohol use. He verbalized understanding of this and wishes to proceed by going home. I believe him to have decision- making capacity. I do not think that discharging patient home with Librium is appropriate given his history of alcoholism. - Data Points Medications Given: Discontinued Medications Folic Acid (Folic Acid) 1 mg PO EDNOW ONE Stop: 02/21/18 10:27 Last Admin: 02/21/18 10:33 Dose: 1 mg Lorazepam (Ativan) 2 mg PO EDNOW ONE Stop: 02/21/18 10:27 Last Admin: 02/21/18 10:33 Dose: 2 mg Thiamine HCl (Vitamin B-1) 100 mg PO EDNOW ONE Stop: 02/21/18 10:27 Last Admin: 02/21/18 10:32 Dose: 100 mg Departure - Departure Disposition: Home, Routine, Self-Care Clinical Impression: Head injury Qualifiers: Encounter type: initial encounter Qualified Code(s): S09.90XA - Unspecified injury of head, initial encounter Condition: Good Instructions: Head Injury (ED) Additional Instructions: We have offered to send you to the [facility] you have declined. Stopping alcohol suddenly can be deadly. ALTHOUGH THERE IS NO EVIDENCE OF SERIOUS HEAD INJURY AT THIS TIME, DELAYED SIGNS CAN APPEAR 24 TO 48 HOURS AFTER INJURY. PLEASE RETURN TO THE EMERGENCY DEPARTMENT (ED) IMMEDIATELY IF YOU HAVE INCREASED HEADACHE, PERSISTENT HEADACHE , VOMITING, WEAKNESS, CONFUSION OR VISUAL PROBLEMS. WE RECOMMEND THAT YOU DO NOT RESUME CONTACT SPORTS OR ACTIVITIES THAT TAKE COORDINATION OR BALANCE SUCH SKIING OR RIDING A BICYCLE UNTIL CLEARED TO DO SO BY YOUR DOCTOR OR BY A NEUROLOGIST. Referrals: [facility],. [Clinic] - 1-2 days without fail
[2018-02-21 11:55] VITALS: BP 135/89
== END 2018-02-21 12:22 | disposition home or self-care (01) ==
DX: S09.90XA Unspecified injury of head, initial encounter (principal); F10.20 Alcohol dependence, uncomplicated; W01.0XXA Fall on same level from slipping, tripping and stumbling without subsequent striking against object, initial encounter; Y92.9 Unspecified place or not applicable; Y93.9 Activity, unspecified; Y99.9 Unspecified external cause status

== ENCOUNTER 2018-03-19 19:53 | Inpatient (IN) | payer MEDICAID ==
[2018-03-19] MEDS ORDERED: NS 1,000 ML IV ONE ×2 (19:55→20:59)
[2018-03-19] MEDS ORDERED: LORazepam 2 MG/ML INJ IVP ONE ×2 (19:56→22:26)
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
[2018-03-19 20:24] LABS: PLATELET COUNT 167 10^3/uL (150-400)
[2018-03-19] MEDS: LORazepam 2 MG/ML INJ IVP PRN ×3 (20:34→22:14)
[2018-03-19] MEDS ORDERED: chlordiazePOXIDE 25 MG CAP PO ONE (21:50)
[2018-03-20] MEDS ORDERED: LORazepam 2 MG/ML INJ IVP ONE (00:42)
[2018-03-20] MEDS: LORazepam 2 MG/ML INJ IVP PRN ×4 (00:44→23:39)
[2018-03-20] MEDS ORDERED: ONDANSETRON 4 MG/2 ML VIAL IVP PRN (04:24)
[2018-03-20] MEDS ORDERED: ONDANSETRON DISINTEGRATING 4 MG TAB PO PRN (04:24)
[2018-03-20] MEDS ORDERED: FLUMAZENIL 0.5 MG/5 ML MDV IVP PRN (04:26)
[2018-03-20] MEDS ORDERED: NS 1,000 ML IV SCH (04:30)
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
[2018-03-20] MEDS: LORazepam 1 MG TAB PO PRN ×2 (06:15→11:24)
[2018-03-20] MEDS: THIAMINE HCL 500 MG in NS 100 ML IV SCH (08:56)
[2018-03-20] MEDS: FOLIC ACID 1 MG TAB PO SCH (08:59)
[2018-03-20] MEDS: MULTIVITAMINS 1 EACH TAB PO SCH (08:59)
[2018-03-20] MEDS: ENOXAPARIN 40 MG/0.4 ML SYR SC SCH (09:01)
--- NOTE | 2018-03-20 10:07 | ASMTCAGE ---
CAGE Do you feel you ought to Answers: No cut down on your drinking or drug use? Do people annoy you by Answers: No criticizing your drinking or drug use? Do you feel guilty about Answers: No your drinking or drug use? Do you drink or use drugs Answers: No first thing in the morning ([employer])? Date Signed: 03/20/2018 10:07 AM Electronically Signed By:Rasheed Mari LCSW
--- NOTE | 2018-03-20 10:07 | ASMTCASEMG ---
Living Arrangements What is your living Answers: Alone arrangement? Who do you live with? Type Of Residence What kind of residence do Answers: Apartment you live in? Stairs in Home Answers: Yes Environment Case Management Evaluation Functional: Able to Answers: No Notes: Ambulation return Home with Prior Level of Function/Care Psychosocial Needs: Answers: Active Substance Abuse Notes: ETOH Discharge Plan Comments Coordination Status Comments Notes: Pt in FED after "fall on ice" three days ago. He stated that he slipped on the ice on stairs at his apartment complex. He had visible tremors and could not make eye contact. He reported that he has a good relationship with his older brother Guru who lives in "[place]." This SW spoke with Guru [phone] and provided him with the ED CM office number. SBIRT/CAGE completed. Pt has had multiple ED visits for ETOH however he does not believe he has a problem or need to reduce alcohol use. Pt is cooperative and talkative however information is unreliable He stated that he has "many good stories" and described his life when he worked for [employer] and dated a [employer]. DC plans TBLORI Gayle to follow. Date Signed: 03/20/2018 10:06 AM Electronically Signed By:Rasheed Mari LCSW
[2018-03-20] MEDS ORDERED: LORazepam 1 MG TAB ONE (11:23)
--- NOTE | 2018-03-20 15:25 | HOSPPROG ---
Hospitalist Progress Note Assessment/Plan: 67 yo M w alcoholism here w fall, cant walk alcohol withdrawal: continue ciwa cannot walk: no hip pain so OK to hold on films unless cannot stand w assistance pt/ot evals Subjective: confabulating. cannot walk. denies hip pain Objective: Vital Signs Temp Pulse Resp BP Pulse Ox 36.7 C 107 H 12 131/85 H 97 03/20/18 12:19 03/20/18 12:19 03/20/18 12:19 03/20/18 12:19 03/20/18 12:19 03/19/18 03/20/18 03/21/18 05:59 05:59 05:59 Intake Total 1000 Balance 1000 - Physical Exam Constitutional: no apparent distress, appears nourished Eyes: PERRL, anicteric sclera Ears, Nose, Mouth, Throat: moist mucous membranes, hearing normal Cardiovascular: regular rate and rhythym, no murmur, rub, or gallop Respiratory: no respiratory distress, no rales or rhonchi Gastrointestinal: normoactive bowel sounds Genitourinary: no bladder fullness, No day in urethra Skin: warm Musculoskeletal: other (no pain w manipulation of hips b/l) Neurologic: AAOx3 ICD10 Worksheet Patient Problems: Problems Problem Status Onset Alcohol withdrawal Acute Fall Acute Alcohol intoxication Acute Cervical strain Acute Facial abrasion Acute Facial contusion Acute Head injury Acute
--- NOTE | 2018-03-20 16:41 | PDMN ---
Medical Necessity Medical necessity: change to IP as of 03/20/2018 per and DORITA M-[id number]; est los> 2 mn for ongoing tx and management of alcohol withdrawal (CIWA 6) ; requiring CIWA protocol, further monitoring, IVF, and therapies.
[2018-03-21] MEDS: ENOXAPARIN 40 MG/0.4 ML SYR SC SCH (08:25)
[2018-03-21] MEDS: FOLIC ACID 1 MG TAB PO SCH (08:26)
[2018-03-21] MEDS: MULTIVITAMINS 1 EACH TAB PO SCH (08:26)
[2018-03-21] MEDS: THIAMINE HCL 500 MG in NS 100 ML IV SCH (10:16)
[2018-03-21] MEDS: ACETAMINOPHEN 325 MG TAB PO PRN (12:13)
--- NOTE | 2018-03-21 13:20 | HOSPPROG ---
Hospitalist Progress Note Assessment/Plan: 67 yo M w alcoholism here w fall, cant walk alcohol withdrawal: continue ciwa cannot walk: no hip pain so OK to hold on films unless cannot stand w assistance pt/ot evals Dispo: Pending PT/OT evals Subjective: Patient reports no complaints this AM Objective: Vital Signs Temp Pulse Resp BP Pulse Ox 36.4 C 121 H 18 135/91 H 97 03/21/18 12:00 03/21/18 12:00 03/21/18 12:00 03/21/18 12:00 03/21/18 12:00 - Physical Exam Constitutional: chronically ill appearing, unkempt Eyes: anicteric sclera Ears, Nose, Mouth, Throat: poor dentition, dry mucous membranes Cardiovascular: regular rate and rhythym Respiratory: no respiratory distress Gastrointestinal: soft, non-tender abdomen Genitourinary: no bladder tenderness Skin: warm Musculoskeletal: generalized weakness Neurologic: AAOx3 Psychiatric: poor insight ICD10 Worksheet Patient Problems: Problems Problem Status Onset Alcohol withdrawal Acute Fall Acute Alcohol intoxication Acute Cervical strain Acute Facial abrasion Acute Facial contusion Acute Head injury Acute
[2018-03-21] MEDS: LORazepam 2 MG/ML INJ IVP PRN ×2 (15:16→21:37)
[2018-03-22] MEDS: ENOXAPARIN 40 MG/0.4 ML SYR SC SCH (07:39)
[2018-03-22] MEDS: FOLIC ACID 1 MG TAB PO SCH (07:44)
[2018-03-22] MEDS: MULTIVITAMINS 1 EACH TAB PO SCH (07:44)
[2018-03-22] MEDS: LORazepam 2 MG/ML INJ IVP PRN (07:46)
[2018-03-22] MEDS: THIAMINE HCL 500 MG in NS 100 ML IV SCH (08:45)
--- NOTE | 2018-03-22 09:47 | ASMTCMCOM ---
CM Note CM Note Notes: CM spoke to Dr. Ch. Pt is being discharged today. CM met w/ pt for dispo planning. Therapies are recommending SNF. Pt is not interested in going to SNF. Pt is not interested in getting sober. Pt does not want any services at this time. Pt reports that he has a brother that can pick him up. CAGE completed. CM available for changes. Plan: Independent Date Signed: 03/22/2018 09:46 AM Electronically Signed By:CHRISTIAN Moore
--- NOTE | 2018-03-22 09:48 | ASMTLACE ---
LACE Length of stay for Answers: 3 days current admission Acuity / Level of Answers: Yes Care: Did the patient have an inpatient admission? # of Emergency department Answers: 5-8 visits in the last 6 months Social determinants Answers: History of substance abuse (ETOH, street drugs, prescription drugs, etc.) Score: 13 Date Signed: 03/22/2018 09:46 AM Electronically Signed By:CHRISTIAN Moore
--- NOTE | 2018-03-22 12:18 | HOSPPROG ---
Hospitalist Progress Note Assessment/Plan: 67 yo M w alcoholism here w fall, cant walk alcohol withdrawal: discussed with patient that he has no desire to quite drinking, switched from Ativan to Beer today. Continue Folic acid, thiamine daily Gait instability: s/p fall, pt/ot recommending SNF Dispo: PT recommending SNF placement, patient refusing. He wants to go home, he remains unsteady on his feet and a high fall risk, he understands these risks. He was going to be discharged today but continues to feel unsteady on feet, continue PT/OT Subjective: Ricci reports no complaints today Objective: Vital Signs Temp Pulse Resp BP Pulse Ox 37.0 C 111 H 16 142/87 H 94 03/22/18 08:23 03/22/18 08:23 03/22/18 08:23 03/22/18 08:23 03/22/18 08:23 03/21/18 03/22/18 03/23/18 05:59 05:59 05:59 Output Total 3 Balance -3 - Physical Exam Constitutional: no apparent distress Eyes: PERRL Ears, Nose, Mouth, Throat: moist mucous membranes Cardiovascular: regular rate and rhythym Respiratory: no respiratory distress Gastrointestinal: soft, non-tender abdomen Skin: warm Musculoskeletal: abnormal gait, generalized weakness Neurologic: AAOx3 Psychiatric: not encephalopathic ICD10 Worksheet Patient Problems: Problems Problem Status Onset Alcohol withdrawal Acute Fall Acute Alcohol intoxication Acute Cervical strain Acute Facial abrasion Acute Facial contusion Acute Head injury Acute
[2018-03-22] MEDS: ACETAMINOPHEN 325 MG TAB PO PRN ×2 (12:21→20:58)
--- NOTE | 2018-03-22 14:34 | ASMTCMCOM ---
CM Note CM Note Notes: Pts dc is being postponed for medical reasons. Pt will most likely d/c tomorrow. CM to follow. Date Signed: 03/22/2018 02:33 PM Electronically Signed By:CHRISTIAN Moore
[2018-03-22] MEDS ORDERED: BEER 1 EACH EA PO SCH (16:00)
[2018-03-22] MEDS: BEER 1 EACH EA PO SCH (18:19)
[2018-03-22] MEDS: MELATONIN 3 MG TAB PO SCH (20:58)
[2018-03-23] MEDS ORDERED: THIAMINE HCL 100 MG TAB PO SCH (04:26)
[2018-03-23] MEDS: BEER 1 EACH EA PO SCH ×3 (07:56→17:26)
[2018-03-23] MEDS: ENOXAPARIN 40 MG/0.4 ML SYR SC SCH (07:56)
[2018-03-23] MEDS: MULTIVITAMINS 1 EACH TAB PO SCH (07:57)
[2018-03-23] MEDS: FOLIC ACID 1 MG TAB PO SCH (07:57)
[2018-03-23] MEDS: THIAMINE HCL 100 MG TAB PO SCH (07:57)
--- NOTE | 2018-03-23 09:24 | PDIAF ---
- Diagnosis Diagnosis: Alcohol Withdrawal, Fall Code Status: Full Code - Medication Management Discharge Medications: electronically signed and located in the Home Medication List. - Orders Services needed: Home Care, Physical Therapy, Occupational Therapy Home Care Face to Face: I certify that this patient was under my care and that I had the required [id number] encounter meeting the encounter requirements on the discharge day. My findings support the fact that the patient is homebound as defined in Home Care Face to Face Continued: CMS Chapter 7 Medicare Benefits Manual 30.1.1 , The condition of the patient is such that there exists a normal inability to leave home and consequently, leaving home would require a considerable and taxing effort. Additional Instructions: Please refrain from abusing alcohol. Return to the emergency department immediately for fever, vomiting, confusion, headache, abdominal pain or other worsening of condition. - Follow Up Care Current Providers and Referrals: [facility],. [Clinic] - As per Instructions Lois Carreon MD [[facility] [place] Primary Care Provider] - As per Instructions
--- NOTE | 2018-03-23 10:56 | HOSPPROG ---
Hospitalist Progress Note Assessment/Plan: 67 yo M w alcoholism here w fall, cant walk alcohol withdrawal: discussed with patient that he has no desire to quite drinking, switched from Ativan to Beer yesterday. Continue Folic acid, thiamine daily Gait instability: s/p fall, pt/ot recommending SNF Dispo: PT recommending SNF placement, patient refusing. He wants to go home, he remains unsteady on his feet and a high fall risk, he understands these risks. He was going to be discharged today but continues to feel unsteady on feet, continue PT/OT Subjective: Patient reports headache overnight, resolved this morning Objective: Vital Signs Temp Pulse Resp BP Pulse Ox 36.4 C 122 H 16 173/112 H 97 03/23/18 07:12 03/23/18 07:12 03/23/18 07:12 03/23/18 07:12 03/23/18 07:12 03/22/18 03/23/18 03/24/18 05:59 05:59 05:59 Output Total 3 Balance -3 - Physical Exam Constitutional: chronically ill appearing, unkempt Eyes: PERRL Ears, Nose, Mouth, Throat: moist mucous membranes Cardiovascular: tachycardia Respiratory: no respiratory distress Gastrointestinal: soft, non-tender abdomen Genitourinary: No day in urethra Skin: warm Musculoskeletal: abnormal gait, generalized weakness Neurologic: AAOx3 Psychiatric: poor insight, poor judgement ICD10 Worksheet Patient Problems: Problems Problem Status Onset Alcohol withdrawal Acute Fall Acute Alcohol intoxication Acute Cervical strain Acute Facial abrasion Acute Facial contusion Acute Head injury Acute
--- NOTE | 2018-03-23 17:18 | ASMTCMCOM ---
CM Note CM Note Notes: Reviewed chart, spoke with VISH Crump and Dr. Ch regarding discharge plan of care, pt's progress. Pt previously scheduled to discharge home independently today. Per Alisia and Dr. Ch, pt unstable on his feet and in need of SNF rehab services. Met with pt to discuss SNF options. Due to pt's Medicaid coverage, pt would require a 30 day inpt stay. Discussed 30 day requirement wtih pt. Pt very talkative. CM spent >45 minutes with pt. 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 Asked pt if CM could contact his brother, Lance to discuss discharge plans. Pt agreeable stating "who knows what he'll say, he's his own person." Call placed to Keila liaison at [facility] to discuss SNF options. Per Keila, pt would likely lose his housing if he goes into rehab (since they take all wages while the pt is in rehab). Keila states [facility] can accommodate the pt's drinking, if the pt is discharged with a doctor's order for alcohol. Facesheet faxed to [facility] - per Keila, pt does not have any Medicare benefits at this time. Call placed to Dr. Ch. Concerns regarding discharge discussed. Pt seems to understand he is unsafe to discharge home independently, but is unsure he wants to go to rehab for 30 days. Pt also unsure about HHC secondary to homebound status. Pt to think about options overnight. CM to follow up with pt on Sunday03/24/18. Discharge Plan: To be determined Date Signed: 03/23/2018 05:17 PM Electronically Signed By:Mandy Nicholson RN
[2018-03-23] MEDS: ACETAMINOPHEN 325 MG TAB PO PRN (17:20)
[2018-03-23] MEDS: MELATONIN 3 MG TAB PO SCH (20:04)
[2018-03-24] MEDS: MULTIVITAMINS 1 EACH TAB PO SCH (09:02)
[2018-03-24] MEDS: FOLIC ACID 1 MG TAB PO SCH (09:02)
[2018-03-24] MEDS: THIAMINE HCL 100 MG TAB PO SCH (09:03)
[2018-03-24] MEDS: ENOXAPARIN 40 MG/0.4 ML SYR SC SCH (09:03)
[2018-03-24] MEDS: BEER 1 EACH EA PO SCH ×3 (10:07→17:39)
[2018-03-24] MEDS: LORazepam 1 MG TAB PO PRN ×3 (11:00→21:06)
--- NOTE | 2018-03-24 12:06 | HOSPPROG ---
Hospitalist Progress Note Assessment/Plan: 67 yo M w alcoholism here w fall, cant walk alcohol withdrawal: discussed with patient that he has no desire to quite drinking, switched from Ativan to Beer yesterday, RN reports . Continue Folic acid, thiamine daily Gait instability: s/p fall, pt/ot recommending SNF Dispo: PT recommending SNF placement, patient refusing. He wants to go home, he remains unsteady on his feet and a high fall risk, he understands these risks. Possible discharge today, CM working on finding resources for patient to be safely discharged Subjective: Patien reports no complaints this morning Objective: Vital Signs Temp Pulse Resp BP Pulse Ox 36.6 C 116 H 16 117/66 94 03/24/18 11:57 03/24/18 11:57 03/24/18 11:57 03/24/18 11:57 03/24/18 11:57 03/23/18 03/24/18 03/25/18 05:59 05:59 05:59 Intake Total 1300 Output Total 200 Balance 1100 - Physical Exam Constitutional: chronically ill appearing, unkempt Eyes: PERRL Ears, Nose, Mouth, Throat: moist mucous membranes Cardiovascular: tachycardia Respiratory: no respiratory distress Gastrointestinal: soft, non-tender abdomen Genitourinary: No day in urethra Skin: warm Musculoskeletal: abnormal gait Neurologic: AAOx3 Psychiatric: poor insight, poor judgement ICD10 Worksheet Patient Problems: Problems Problem Status Onset Alcohol withdrawal Acute Fall Acute Alcohol intoxication Acute Cervical strain Acute Facial abrasion Acute Facial contusion Acute Head injury Acute
[2018-03-24] MEDS: ACETAMINOPHEN 325 MG TAB PO PRN (15:05)
--- NOTE | 2018-03-24 19:26 | ASMTCMCOM ---
CM Note CM Note Notes: Reviewed chart, spoke with Lacey Vivas, RN and Pamela, Soft Hat Binder of regarding discharge plan. Pt's case is complex. Several messages left for pt's brother Leon. Call back received; spoke with Leon and Leon's , Julianna. Family defensive during conversation, stating [place] bunch of snow last night." They report having "issues of their own and are unable to help." Julianna did most of the talking during the conversation. Per Julianna, the pt "has been an alcoholic for a very long time and they refuse to be co-dependent." "If the pt fell because he was drinking, it's not their problem." Julianna stated "it was up to the hospital to help the pt with a safe discharge and finding a walker." Julianna and Leon discussed their commitment to taking the pt to lunch monthly (as promised on their mother's deathbed) if the pt becomes sober. Leon reports "being out of touch with his brother for the past 6 months." Family thankful for 's assistance. Family wishes to be contacted for changes in the pt's condition, but does not wish to be contacted for any drinking related concerns. Met with pt to discuss SNF options, lack of Medicare benefits and conversation with pt's brother. Updates provided. CM and pt concerned about pt losing his housing, if he goes to rehab. Pt agreeable to [facility] (RN/PT/OT services). Address and phone number verified. Pt agrees to homebound status. Pt denies a preference for a particular agency. [facility] Pamphlets on [facility] provided. Pt provided with information on [employer]. Pt states he already receives Meals on Wheels. Several referrals sent to various home care agencies ([facility], [facility], [facility], [facility] Call received from Rabia with [facility]. Per Rabia, able to accept pt for start of care 03/26 or 03/27. Rabia to confirm with CM on Sunday. Updates provided to Dr. Ch and Lacey, RN. Pt to discharge Sunday03/25/18 with [facility] (RN[facility]PT[facility]OT). CM provided pt with a walker for home use. CM to call [place] to arrange for Medicaid transport in the morning. Pt to call to extend Meals on Wheels. [facility] to follow up with pt. CM will continue to follow. Discharge Plan: [facility] ([facility]) Date Signed: 03/24/2018 07:25 PM Electronically Signed By:Mandy Nicholson RN
[2018-03-24] MEDS: MELATONIN 3 MG TAB PO SCH (21:06)
[2018-03-25 07:15] VITALS: BP 137/86
[2018-03-25] MEDS: ENOXAPARIN 40 MG/0.4 ML SYR SC SCH (08:29)
[2018-03-25] MEDS: MULTIVITAMINS 1 EACH TAB PO SCH (08:29)
[2018-03-25] MEDS: THIAMINE HCL 100 MG TAB PO SCH (08:29)
[2018-03-25] MEDS: FOLIC ACID 1 MG TAB PO SCH (08:29)
[2018-03-25] MEDS: BEER 1 EACH EA PO SCH ×2 (08:30→12:35)
--- NOTE | 2018-03-25 10:57 | PDIAF ---
- Diagnosis Diagnosis: Alcohol Withdrawal, Fall Code Status: Full Code - Medication Management Discharge Medications: electronically signed and located in the Home Medication List. - Orders Services needed: Home Care, Registered Nurse, Physical Therapy, Occupational Therapy Home Care Face to Face: I certify that this patient was under my care and that I had the required [id number] encounter meeting the encounter requirements on the discharge day. My findings support the fact that the patient is homebound as defined in Home Care Face to Face Continued: CMS Chapter 7 Medicare Benefits Manual 30.1.1 , The condition of the patient is such that there exists a normal inability to leave home and consequently, leaving home would require a considerable and taxing effort. Additional Instructions: Please refrain from abusing alcohol. Return to the emergency department immediately for fever, vomiting, confusion, headache, abdominal pain or other worsening of condition. - Follow Up Care Current Providers and Referrals: [facility],. [Clinic] - As per Instructions Lois Carreon MD [[facility] Primary Care Provider] - As per Instructions
--- NOTE | 2018-03-25 11:21 | PDDCSUM ---
Discharge Summary Discharge Summary: Date of Admission: 03/20/2018 Date of Discharge: 03/24/2018 Consults: PT/OT, LORI Procedures: N/A Followup: Home care, PCP Hospital Course Problem List: 67 yo M w alcoholism here w fall, gait instability likely 2/2 to chronic alcohol use alcohol withdrawal: discussed with patient that he has no desire to quite drinking, switched from Ativan to Beer. Continue Folic acid, thiamine daily Gait instability: s/p fall, pt/ot recommending SNF, however patient refused. He remained unsteady on his feet and he felt unsafe to go home over the weekend , but continued to refuse SNF placement. He was explained the risks of refusing SNF and going home which include risk of falls, possible . CM worked with patient who has arranged home health care services/ Time spent on discharge was >35 minutes with >50% of time spent on patient education and counseling.
--- NOTE | 2018-03-25 11:56 | ASMTDCNOTE ---
Case Management Discharge Discharge Order Complete? Answers: Yes Patient to Obtain Answers: Independently Medications Transportation Arranged Answers: Family/Friends EMTALA Complete Answers: No Case Management Transport Answers: No Form Complete Faxed Final Orders Answers: Yes Agency/Facility Transfer Answers: Yes Report Printed & Faxed to Receiving Agency Family Notified Answers: No Discharge Comments Notes: Pts case discussed w/ Dr. Ch and Shirin RN. Pt is being discharged today. CM spoke to Joyce at [facility] and they are able to accept. DC orders sent to [facility]. CM provided pt w/ pants from the donation closet. CM made pt an appointment to follow up w/ primary care. CM available for changes. Please follow up with [facility] J[facility] Carr 03/26 @ 9:30AM [address] [place] [id number] [phone] Plan: [facility]; PT, OT, RN Date Signed: 03/25/2018 11:55 AM Electronically Signed By:CHRISTIAN Moore
--- NOTE | 2018-03-25 11:57 | ASDISCHSUM ---
Discharge Information Plan Status:Home with Home Health Medically Cleared to Leave:03/24/2018 Discharge Date:03/24/2018 CM D/C Disposition:Home Health Service ADT D/C Disposition: Projected Discharge Date:03/25/2018 11:00 AM Transportation at D/C:Medicaid Transportation Discharge Delay Reason: Follow-Up Date:03/25/2018 11:00 AM Discharge Slot: Final Diagnosis:ETOH withdrawal, fall, gait instability Placement Information Referral Type:*Home Health Care Services Referral ID:[id number] Provider Name:[facility]) [address] [address] [facility] [address] Address 2: City:[place] Selection Factors: State:[place] Patient Contact Information Contact Name:FREDDY Relationship: Address: City: [facility] Phone: [facility]/Zip Code: Email: Financial Information Financial Class:Medicaid Primary Plan Desc:[place] Primary Plan Number:[id number] Secondary Plan Desc: Secondary Plan Number: Assessment Information [facility] Initial CM Assessment Living Arrangements What is your living Answers: Alone arrangement? Who do you live with? Type Of Residence What kind of residence do Answers: Apartment you live in? Stairs in Home Answers: Yes Environment Case Management Evaluation Functional: Able to Answers: No Notes: Ambulation return Home with Prior Level of Function/Care Psychosocial Needs: Answers: Active Substance Abuse Notes: ETOH Discharge Plan Comments Coordination Status Comments Notes: Pt in FED after "fall on ice" three days ago. He stated that he slipped on the ice on stairs at his apartment complex. He had visible tremors and could not make eye contact. He reported that he has a good relationship with his older brother Guru who lives in "[place]." This SW spoke with Guru [phone] and provided him with the ED CM office number. SBIRT/CAGE completed. Pt has had multiple ED visits for ETOH however he does not believe he has a problem or need to reduce alcohol use. Pt is cooperative and talkative however information is unreliable He stated that he has "many good stories" and described his life when he worked for [employer] and dated a [employer]. DC plans TBD, CM to follow. Date Signed: 03/20/2018 10:06 AM Electronically Signed By:Rasheed Mari LCSW CAGE Questionnaire CAGE Do you feel you ought to Answers: No cut down on your drinking or drug use? Do people annoy you by Answers: No criticizing your drinking or drug use? Do you feel guilty about Answers: No your drinking or drug use? Do you drink or use drugs Answers: No first thing in the morning (Eye Quality Assurance Monitor Body)? Date Signed: 03/20/2018 10:07 AM Electronically Signed By:Rasheed Mari LCSW LACE LACE Length of stay for Answers: 3 days current admission Acuity / Level of Answers: Yes Care: Did the patient have an inpatient admission? # of Emergency department Answers: 5-8 visits in the last 6 months Social determinants Answers: History of substance abuse (ETOH, street drugs, prescription drugs, etc.) Score: 13 Date Signed: 03/22/2018 09:46 AM Electronically Signed By:CHRISTIAN Moore [facility] Progress Note CM Note CM Note Notes: CM spoke to Dr. Ch. Pt is being discharged today. CM met w/ pt for dispo planning. Therapies are recommending SNF. Pt is not interested in going to SNF. Pt is not interested in getting sober. Pt does not want any services at this time. Pt reports that he has a brother that can pick him up. CAGE completed. CM available for changes. Plan: Independent Date Signed: 03/22/2018 09:46 AM Electronically Signed By:CHRISTIAN Moore [facility] LORI Progress Note CM Note CM Note Notes: Pts dc is being postponed for medical reasons. Pt will most likely d/c tomorrow. CM to follow. Date Signed: 03/22/2018 02:33 PM Electronically Signed By:CHRISTIAN Moore [facility] LORI Progress Note CM Note CM Note Notes: Reviewed chart, spoke with VISH Crump and Dr. Ch regarding discharge plan of care, pt's progress. Pt previously scheduled to discharge home independently today. Per Alisia and Dr. Ch, pt unstable on his feet and in need of SNF rehab services. Met with pt to discuss SNF options. Due to pt's Medicaid coverage, pt would require a 30 day inpt stay. Discussed 30 day requirement [facility] pt. Pt very talkative. CM spent >45 minutes with pt. 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 Asked pt if CM could contact his brother, Lance to discuss discharge plans. Pt agreeable stating "who knows what he'll say, he's his own person." Call placed to Keila liaison at [facility] to discuss SNF options. Per Keila, pt would likely lose his housing if he goes into rehab (since they take all wages while the pt is in rehab). Keila states [facility] can accommodate the pt's drinking, if the pt is discharged with a doctor's order for alcohol. Facesheet faxed to [facility] - per Keila, pt does not have any Medicare benefits at this time. Call placed to Dr. Ch. Concerns regarding discharge discussed. Pt seems to understand he is unsafe to discharge home independently, but is unsure he wants to go to rehab for 30 days. Pt also unsure about HHC secondary to homebound status. Pt to think about options overnight. CM to follow up with pt on Sunday03/24/18. Discharge Plan: To be determined Date Signed: 03/23/2018 05:17 PM Electronically Signed By:Mandy Nicholson RN [facility] Progress Note CM Note CM Note Notes: Reviewed chart, spoke with Lacey Vivas RN and Pamela, Car Dropper of regarding discharge plan. Pt's case is complex. Several messages left for pt's brother Leon. Call back received; spoke with Leon and Leon's , Julianna. Family defensive during conversation, stating "[place] and received a bunch of snow last night." They report having "issues of their own and are unable to help." Julianna did most of the talking during the conversation. Per Julianna, the pt "has been an alcoholic for a very long time and they refuse to be co-dependent." "If the pt fell because he was drinking, it's not their problem." Julianna stated "it was up to the hospital to help the pt with a safe discharge and finding a walker." Julianna and Leon discussed their commitment to taking the pt to lunch monthly (as promised on their mother's deathbed) if the pt becomes sober. Leon reports "being out of touch with his brother for the past 6 months." Family thankful for 's assistance. Family wishes to be contacted for changes in the pt's condition, but does not wish to be contacted for any drinking related concerns. Met with pt to discuss SNF options, lack of Medicare benefits and conversation with pt's brother. Updates provided. CM and pt concerned about pt losing his housing, if he goes to rehab. Pt agreeable to [facility] (RN/PT/OT services). Address and phone number verified. Pt agrees to homebound status. Pt denies a preference [facility] a [facility] agency[facility] Pamphlets on [facility] provided. Pt provided with information on [employer]. Pt states he already receives Meals on Wheels. Several referrals sent to various home care agencies ([facility], [facility], [facility], [facility]). Call received from Rabia with [facility]. Per Rabia, able to accept pt for start of care 03/26 or 03/27. Rabia to confirm with CM on Sunday. Updates provided to Dr. Ch and VISH Rahman. Pt to discharge Sunday03/25/18 with [facility] (RN/PT/OT). CM provided pt with a walker for home use. CM to call [facility] to arrange for Medicaid transport in the morning. Pt to call to extend Meals on Wheels. [facility] CM will continue to follow. Discharge Plan: Home with [facility] (RN/PT/OT) Date Signed: 03/24/2018 07:25 PM Electronically Signed By:Mandy Nicholson RN Case Management Discharge Plan Note Case Management Discharge Discharge Order Complete? Answers: Yes Patient to Obtain Answers: Independently Medications Transportation Arranged Answers: Family/Friends EMTALA Complete Answers: No Case Management Transport Answers: No Form Complete Faxed Final Orders Answers: Yes Agency/Facility Transfer Answers: Yes Report Printed & Faxed to Receiving Agency Family Notified Answers: No Discharge Comments Notes: Pts case discussed w/ Dr. Ch and VISH Carpio. Pt is being discharged today. CM spoke to Joyce at [facility] and they are able to accept. DC orders sent to [facility]. CM provided pt w/ pants from the donation closet. CM made pt an appointment to follow up w/ primary care. CM available for changes. Please follow up with [facility] J[facility] Carr 03/26 @ 9:30AM [address] [place] [phone] [facility], OT, RN Date Signed: 03/25/2018 11:55 AM Electronically Signed By:CHRISTIAN Moore Intervention Information
== END 2018-03-25 13:15 | disposition home health service (06) | DRG 775 ==
LOC: EDUNIT# → INTOOBSV 03-20 04:24 → F3E 03-20 12:13 → OBSVTOIN 03-20 15:23
PROVIDERS: ADMIT Student in an Organized Health Care Education/Training Program; ATTEND Internal Medicine
DX: F10.239 Alcohol dependence with withdrawal, unspecified (principal); D53.9 Nutritional anemia, unspecified; R26.81 Unsteadiness on feet
CPT/HCPCS: 92523-GN; 96374; 97116-GP; 97162-GP; 97166-GO; 97535-GO; G0480; J1650; J2060; J3411

== ENCOUNTER 2018-07-08 16:05 | Emergency (ER) | payer MEDICAID, OTHER | END 2018-07-08 17:34 | disposition home or self-care (01) ==

== ENCOUNTER 2018-08-05 10:19 | Emergency (ER) | payer MEDICAID, OTHER ==
[2018-08-05 10:35] VITALS: BP 145/15
--- NOTE | 2018-08-05 10:55 | EDPHY ---
H & P Stated Complaint: body hurts all over Time Seen by Provider: 08/05/18 10:43 HPI/ROS: CHIEF COMPLAINT: Tremors HISTORY OF PRESENT ILLNESS: 67-year-old male with alcoholism presents with tremulousness. He was placed in correction 2 days ago for public intoxication and was released this morning. He began to feel tremulous last evening, persistent today. He was concerned that he might be sick, though now thinks that he is in alcohol withdrawal. No associated vomiting or agitation. No recent illness or fever. REVIEW OF SYSTEMS: complete 10 point ROS reviewed and is negative except for the noted elements in the HPI - Personal History Current Tetanus/Diphtheria Vaccine: Yes Current Tetanus Diphtheria and Acellular Pertussis (TDAP): Yes Tetanus Vaccine Date: < 10 YEARS - Medical/Surgical History Hx Asthma: No Hx Chronic Respiratory Disease: No Hx Diabetes: No Hx Cardiac Disease: No Hx Renal Disease: No Hx Cirrhosis: No Hx Alcoholism: Yes Hx HIV/AIDS: No Hx Splenectomy or Spleen Trauma: No Other PMH: testicular surg to remove cyst. etoh abuse - Social History Smoking Status: Never smoked - Physical Exam Exam: General Appearance: Alert, pleasant Eyes: Pupils equal and round, no conjunctival pallor ENT, Mouth: Mucous membranes moist Neck: Normal inspection Respiratory: Lungs are clear to auscultation Cardiovascular: Regular tachycardia Gastrointestinal: Abdomen is soft and nontender Neurological: A&O, nonfocal, normal gait, mild resting tremor Skin: Warm and dry Extremities: Normal inspection Psychiatric: Mood and affect normal Constitutional: Initial Vital Signs Temperature (C) 36.7 C 08/05/18 10:30 Heart Rate 122 H 08/05/18 10:30 Respiratory Rate 18 08/05/18 10:30 Blood Pressure 145/15 H 08/05/18 10:30 O2 Sat (%) 97 08/05/18 10:30 O2 Delivery Mode Room Air Allergies/Adverse Reactions: No Known Allergies Allergy (Verified 03/31/18 14:20) Home Medications: Medication Instructions Recorded NK [No Known Home Meds] 07/08/18 Medical Decision Making ED Course/Re-evaluation: This patient presents with acute alcohol withdrawal. He is tremulous and tachycardic, not vomiting. He plans to keep drinking. Once he leaves the emergency department is going directly to the liquor store. Declines ARC. Encouraged to d/c Etoh, pt unwilling. Benzo's not indicated in this situation. Warning signs discussed. Departure - Departure Disposition: Home, Routine, Self-Care Clinical Impression: Alcohol withdrawal Qualifiers: Complication of substance-induced condition: uncomplicated Qualified Code(s): F10.230 - Alcohol dependence with withdrawal, uncomplicated Condition: Good Instructions: Alcohol Withdrawal (ED) Additional Instructions: Return for worsening symptoms or any concerns. Referrals: [facility],. [Clinic] - As per Instructions
== END 2018-08-05 11:08 | disposition home or self-care (01) ==
DX: F10.230 Alcohol dependence with withdrawal, uncomplicated (principal)

== ENCOUNTER 2018-08-18 15:48 | Emergency (ER) | payer MEDICAID ==
[2018-08-18] MEDS ORDERED: NS 1,000 ML IV ONE (15:50)
[2018-08-18] MEDS ORDERED: LORazepam 2 MG/ML INJ IVP ONE (15:50)
--- NOTE | 2018-08-18 15:53 | EDPHY ---
H & P Time Seen by Provider: 08/18/18 15:51 HPI/ROS: HPI CHIEF COMPLAINT: Alcohol withdrawal HISTORY OF PRESENT ILLNESS: Patient is a 67-year-old male, presents to the emergency room from his private residence by EMS for alcohol draw. His last drink was at 6:00 p.m. Yesterday. He presents emergency room somewhat tremulous with arm extension and tongue fasciculations. He is not hallucinating any denies any acute complaints. He does feel tremulous. He denies vomiting, denies chest pain or shortness of breath. Patient reports to me that he drinks rather daily, typical liquor. His last drink was at 6:00 p.m. Yesterday. States he a pt of liquor. Past Medical History: Denies significant medical history Past Surgical History: Denies significant surgical history Social History: Daily alcohol use. Denies illicit drugs or tobacco. Lives in a private residence. Family History: Noncontributory ROS REVIEW OF SYSTEMS: 10 Systems were reviewed and negative with the exception of the elements mentioned in the history of present illness. Exam Constitutional nontoxic, triage nursing summary reviewed, vital signs reviewed , awake/alert. Eyes normal conjunctivae and sclera, EOMI, PERRLA. HENT normal inspection, atraumatic, moist mucus membranes, no epistaxis, neck supple/ no meningismus, no raccoon eyes. Respiratory clear to auscultation bilaterally, normal breath sounds, no respiratory distress, no wheezing. Cardiovascular rate normal, regular rhythm, no murmur, no edema, distal pulses normal. Gastrointestinal soft, non-tender, no rebound, no guarding, normal bowel sounds, no distension, no pulsatile mass. Genitourinary no CVA tenderness. Musculoskeletal with arm extension he has tremors, no midline vertebral tenderness, full range of motion, no calf swelling, no tenderness of extremities , no meningismus, good pulses, neurovascularly intact. Skin pink, warm, & dry, no rash, skin atraumatic. Neurologic on exam tongue fasciculations with tongue fasciculations. awake, alert and oriented x 3, AAOx3, moves all 4 extremities equally, motor intact, sensory intact, CN II-XII intact, normal cerebellar, normal vision, normal speech. Psychiatric normal mood/affect. Heme/Lymph/Immune no lymphadenopathy. Differential Diagnosis: Includes but is not limited to in a particular order acute alcohol draw, dehydration, electrolyte disturbance Medical Decision Making: Plan for this patient IV establishment IV fluid bolus , chief librarian circulation department, IV Ativan. Re-evaluation: Serum alcohol level 77. Electrolytes reviewed slightly high K pill will repeat after fluids. 1813: Patient re-evaluate he received IV fluids here and IV Ativan. I offered him to go to detox with Librium for alcohol withdrawal however he has declined this and wants to go home. I do encourage him to follow up with his primary care doctor additionally encouraged him to go to detox. With Librium. Patient has declined this and wants to go home. Here in emergency room he had a repeat chemistry and is normalized specifically his potassium. He is well-hydrated. Received 1 mg IV Ativan is doing much better. He is no longer tachycardic nor does he have any tremors. He feels comfortable and resting. Source: Patient, EMS - Personal History Tetanus Vaccine Date: < 10 YEARS - Medical/Surgical History Hx Asthma: No Hx Chronic Respiratory Disease: No Hx Diabetes: No Hx Cardiac Disease: No Hx Renal Disease: No Hx Cirrhosis: No Hx Alcoholism: Yes Hx HIV/AIDS: No Hx Splenectomy or Spleen Trauma: No Other PMH: testicular surg to remove cyst. etoh abuse - Social History Smoking Status: Never smoked Constitutional: Initial Vital Signs Temperature (C) 36.8 C 08/18/18 15:51 Heart Rate 110 H 08/18/18 15:51 Respiratory Rate 20 08/18/18 15:51 Blood Pressure 175/106 H 08/18/18 15:51 O2 Sat (%) 97 08/18/18 15:51 O2 Delivery Mode Room Air Allergies/Adverse Reactions: No Known Allergies Allergy (Verified 08/18/18 15:55) Home Medications: Medication Instructions Recorded NK [No Known Home Meds] 07/08/18 Medical Decision Making - Data Points Laboratory Results: Laboratory Results 08/18/18 15:57 08/18/18 17:15 08/18/18 08/18/18 08/18/18 17:15 15:57 15:57 WBC 8.14 10^3/uL 10^3/uL (3.80-9.50) RBC 4.01 10^6/uL L 10^6/uL (4.40-6.38) Hgb 13.5 g/dL L g/dL (13.7-17.5) Hct 39.5 % L % (40.0-51.0) MCV 98.5 fL fL (81.5-99.8) MCH 33.7 pg pg (27.9-34.1) MCHC 34.2 g/dL g/dL (32.4-36.7) RDW 14.2 % % (11.5-15.2) Plt Count 210 10^3/uL 10^3/uL (150-400) MPV 10.9 fL fL (8.7-11.7) Neut % (Auto) 63.9 % % (39.3-74.2) Lymph % (Auto) 24.7 % % (15.0-45.0) [place] % (Auto) 10.2 % % (4.5-13.0) Eos % (Auto) 0.2 % L % (0.6-7.6) Baso % (Auto) 0.6 % % (0.3-1.7) Nucleat RBC Rel Count 0.0 % % (0.0-0.2) Absolute Neuts (auto) 5.20 10^3/uL 10^3/uL (1.70-6.50) Absolute Lymphs (auto) 2.01 10^3/uL 10^3/uL (1.00-3.00) Absolute Monos (auto) 0.83 10^3/uL H 10^3/uL (0.30-0.80) Absolute Eos (auto) 0.02 10^3/uL L 10^3/uL (0.03-0.40) Absolute Basos (auto) 0.05 10^3/uL 10^3/uL (0.02-0.10) Absolute Nucleated RBC 0.00 10^3/uL 10^3/uL (0-0.01) Immature Gran % 0.4 % % (0.0-1.1) Immature Gran # 0.03 10^3/uL 10^3/uL (0.00-0.10) Sodium 136 mEq/L mEq/L 138 mEq/L mEq/L (135-145) (135-145) Potassium 4.5 mEq/L mEq/L 5.4 mEq/L H mEq/L (3.5-5.2) (3.5-5.2) Chloride 105 mEq/L mEq/L 101 mEq/L mEq/L (97-110) (97-110) Carbon Dioxide 19 mEq/l L mEq/l 20 mEq/l L mEq/l (22-31) (22-31) Anion Gap 12 mEq/L mEq/L 17 mEq/L H mEq/L (6-14) (6-14) BUN 15 mg/dL mg/dL 16 mg/dL mg/dL (7-23) (7-23) Creatinine 0.8 mg/dL mg/dL 0.9 mg/dL mg/dL (0.7-1.3) (0.7-1.3) Estimated GFR > 60 > 60 Glucose 79 mg/dL mg/dL 86 mg/dL mg/dL (70-100) (70-100) Calcium 8.4 mg/dL L mg/dL 9.7 mg/dL mg/dL (8.5-10.4) (8.5-10.4) Ethyl Alcohol 77 mg/dL H mg/dL (0-10) Medications Given: Discontinued Medications Sodium Chloride (Ns) 1,000 mls @ 0 mls/hr IV EDNOW ONE; Wide Open PRN Reason: Protocol Stop: 08/18/18 15:51 Last Admin: 08/18/18 16:04 Dose: 1,000 mls Lorazepam (Ativan Injection) 1 mg IVP EDNOW ONE Stop: 08/18/18 15:51 Last Admin: 08/18/18 16:04 Dose: 1 mg Departure - Departure Disposition: Home, Routine, Self-Care Clinical Impression: Alcohol withdrawal Condition: Good Instructions: Alcohol Withdrawal (ED) Referrals: NONE *PRIMARY CARE P,. [Primary Care Provider] - As per Instructions [facility],. [Clinic] - As per Instructions
[2018-08-18] MEDS ORDERED: CHLORDIAZEPOXIDE 25MG PREPK#6 BTL TAKEHOME ONE (15:55)
[2018-08-18 16:22] LABS: PLATELET COUNT 210 10^3/uL (150-400)
--- NOTE | 2018-08-18 17:41 | ASMTCMCOM ---
CM Note CM Note Notes: Pt presented to the ED via EMS for ETOH withdrawal. Please see 03/25/18 CM DC Summary and 03/31/18 CM Report for additional background info and efforts that have been made to assist pt CM spoke with pt. Pt still is not interested in quitting drinking but states "I will cut it back and moderate it." Pt states he drinks 1 pint of tequila "chased by a Foster" every other day and has been drinking like that since he was 19 yrs old. CM spoke to pt re:his ETOH abuse not being a healthy level and that even if he decreases his drinking, he could start experiencing very serious health issues such as liver failure, ascites, encephelopathy bleeding varices; let alone be at high risk for falls, etc. Pt still didn't seem to grasp the situation and continues to have poor insight into his ETOH abuse and how it is effecting his life. Pt states he has been "dizzy" and "foggy" since he fell and hit his head about 2 weeks ago; and pt also stated "I wasn't even drunk when I fell." Pt also mentioned that he has lost one of his two wallets recently and he is frustrated because he lost a bunch of bus passes. CM asked pt if he thought that his drinking might be related to him continuing to feel "dizzy and foggy" and also related to him losing his wallet or misplacing things, and pt sincerely looked at this CM and responded "it could, it definitely could." Pt also mentioned that his father about 4 days ago and kept saying "I cried because I loved my Dad. And that could be why I drank more than usual." Pt kept perseverating on him having had cried and also that now his mother and father "are together again." CM provided empathetic listening and emotional support, reassuring the pt that it was okay and expected to feel what he was feeling and to having had cried. Pt asked CM "if your dad would you have cried?" This CM responded yes. Pt continued to be tearful and say "I cried." This CM wonders if pt lacks insight into his ETOH abuse, healthy emotional expression and grief reaction either due to ETOH related encephalopathy, developmental delay, or an undiagnosed cognitive issue? CM asked pt if I could contact [facility], [facility], and/or [facility] & request they reach out to him for followup and providing emotional/grief support and assistance to his ETOH abuse and pt stated "I wouldn't be up for that but thank you." Pt has received Meals on Wheels on the past and has been provided info on [facility] and [facility] in the past. Pt states he would like to return home (pt lives in [address] apartment) and not go to Detox center [facility]. This CM asked if we could call pt's brother Kentrell Griffin ([phone], ; Kentrell lives in [facility]), and see if he could come pick him up and help him get home but pt stated "no that would be an extra burden." CM informed pt that depending on how steady he is or isn't on his feet, the only safe discharge options might be either to call Kentrell or go to detox. Pt states he hopes to return home. This CM is leaving for the day but has provided the ED RN with a cab voucher in case pt is fully capable of ambulating safely and returning home independently; but also the pt brother's Kentrell # and the ED CTL will have a voucher to Detox if that is the DC plan. CM to followup tomorrow w/[facility], [facility], or other community outreach options available to the pt and see if they have been able to make contact and assist the pt in the past. Date Signed: 08/18/2018 05:40 PM Electronically Signed By:Mehreen Sauceda RN
[2018-08-18 18:50] VITALS: BP 149/95
--- NOTE | 2018-08-20 10:36 | ASDISCHSUM ---
Discharge Information Plan Status:Home with No Needs Medically Cleared to Leave: Discharge Date:08/18/2018 06:57 PM CM D/C Disposition:Home, Routine, Self-Care ADT D/C Disposition:Home, Routine, Self-Care Projected Discharge Date:08/18/2018 06:57 PM Transportation at D/C:Cab Voucher Discharge Delay Reason: Follow-Up Date:08/18/2018 06:57 PM Discharge Slot: Final Diagnosis: Placement Information Patient Contact Information Contact Name:FREDDY Relationship: Address: City: [facility] Phone: [facility] Code: Email: Financial Information Financial Class:Medicaid Primary Plan Desc:MEDICAID HEALTH FIRST [employer] Primary Plan Number:[id number] Secondary Plan Desc: Secondary Plan Number: Assessment Information [facility] Progress Note CM Note CM Note Notes: Pt presented to the ED via EMS for ETOH withdrawal. Please see 03/25/18 LORI DC Summary and 03/31/18 LORI Report for additional background info and efforts that have been made to assist pt LORI spoke with pt. Pt still is not interested in quitting drinking but states "I will cut it back and moderate it." Pt states he drinks 1 pint of tequila "chased by a Foster" every other day and has been drinking like that since he was 19 yrs old. LOIR spoke to pt re:his ETOH abuse not being a healthy level and that even if he decreases his drinking, he could start experiencing very serious health issues such as liver failure, ascites, encephelopathy bleeding varices; let alone be at high risk for falls, etc. Pt still didn't seem to grasp the situation and continues to have poor insight into his ETOH abuse and how it is effecting his life. Pt states he has been "dizzy" and "foggy" since he fell and hit his head about 2 weeks ago; and pt also stated "I wasn't even drunk when I fell." Pt also mentioned that he has lost one of his two wallets recently and he is frustrated because he lost a bunch of bus passes. CM asked pt if he thought that his drinking might be related to him continuing to feel "dizzy and foggy" and also related to him losing his wallet or misplacing things, and pt sincerely looked at this CM and responded "it could, it definitely could." Pt also mentioned that his father about 4 days ago and kept saying "I cried because I loved my Dad. And that could be why I drank more than usual." Pt kept perseverating on him having had cried and also that now his mother and father "are together again." CM provided empathetic listening and emotional support, reassuring the pt that it was okay and expected to feel what he was feeling and to having had cried. Pt asked CM "if your dad would you have cried?" This CM responded yes. Pt continued to be tearful and say "I cried." This CM wonders if pt lacks insight into his ETOH abuse, healthy emotional expression and grief reaction either due to ETOH related encephalopathy, developmental delay, or an undiagnosed cognitive issue? CM asked pt if I could contact [facility], [facility], and/or [facility] & request they reach out to him for followup and providing emotional/grief support and assistance to his ETOH abuse and pt stated "I wouldn't be up for that but thank you." Pt has received Meals on Wheels on the past and has been provided info on [facility] and [facility] in the past. Pt states he would like to return home (pt lives in [address] apartment) and not go to Detox center [facility]. This CM asked if we could call pt's brother Kentrell Griffin ([phone], ; Kentrell lives in [facility]), and see if he could come pick him up and help him get home but pt stated "no that would be an extra burden." CM informed pt that depending on how steady he is or isn't on his feet, the only safe discharge options might be either to call Kentrell or go to detox. Pt states he hopes to return home. This CM is leaving for the day but has provided the ED RN with a cab voucher in case pt is fully capable of ambulating safely and returning home independently; but also the pt brother's Kentrell Traylor and the ED CTL will have a voucher to [facility] if that is the DC plan. CM to follow[facility] tomorrow w[facility], [facility], or other community outreach options available to the pt and see if they have been able to make contact and assist the pt in the past. Date Signed: 08/18/2018 05:40 PM Electronically Signed By:Mehreen Sauceda RN Intervention Information Intervention Type:Post Acute Communication Date of Service:08/19/2018 10:24 AM Patient Type:Emergency Room Staff Member:VISH Sauceda [place] Hours:0.25 Discipline:Crisis Therapist Severity: Comment:Followed up with [facility] homero reid and requested they continue trying to reac h out to the pt and explained pt's resistance to following up on his own. Requested that pt's care team (Marissa Abebe) consider doing a home visit with a Behavioral Health Specialist but also ensured they knew pt is an alcoholic and drinks daily. Intervention Type:Community Resources Date of Service:08/20/2018 10:24 AM Patient Type:Emergency Room Staff Member:VISH Sauceda [place] Hours:0.25 Discipline:Crisis Therapist Severity: Comment:sent an e-mail to [facility] liaisons keily ting them to reach out to patient again.
== END 2018-08-18 18:57 | disposition home or self-care (01) ==
LOC: EDUNIT#
DX: F10.239 Alcohol dependence with withdrawal, unspecified (principal); E86.9 Volume depletion, unspecified
CPT/HCPCS: 96374; G0480; J2060

== ENCOUNTER 2018-09-05 16:45 | Inpatient (IN) | payer SELFPAY ==
--- NOTE | 2018-09-05 16:44 | EDPHY ---
H & P Time Seen by Provider: 09/05/18 16:42 HPI/ROS: CHIEF COMPLAINT: Fall victim, tooth injury, shaking HISTORY OF PRESENT ILLNESS: Patient last drink was 24 hr ago and he typically drinks heavily. He says he gets shaky but has never had a seizure when he quits drinking. EMS was called for a fall victim. Patient was very shaky walking across the street and fell down injuring his tooth. Denies pain except in his mouth. He feels very shaky. Denies headache or loss of consciousness or chest or abdominal pain or neck or back pain or weakness or numbness in extremities. REVIEW OF SYSTEMS: Eye: no change in vision ENT: HPI Cardiac: no chest pain or syncope Pulmonary: no cough or SOB Abdomen: no vomiting, diarrhea, abdominal pain Musculoskeletal: no back pain Skin: no rash Neuro: no headache Constitutional: no fever : no urinary symptoms A comprehensive 10 point review of systems is otherwise negative aside from elements mentioned in the history of present illness. PAST MEDICAL HISTORY: Alcoholism admitted March 2018 for withdrawal. Social history: No recent alcohol. General Appearance: Alert and conversant, cooperative. Eyes: No scleral icterus. ENT, Mouth: Normal mucous membranes. No external evidence of head trauma. The left anterior lower front tooth is loose and its socket but not completely displaced and not fractured. Respiratory: Normal respiratory effort, breath sounds equal, lungs are clear to auscultation. Cardiovascular: Regular rate and rhythm. Gastrointestinal: Abdomen is soft and non tender. Neurological: Alert, face symmetric, normal motor and sensory in extremities. Follows commands but moderately tremulous, moves all 4 extremities. Skin: Warm and dry, no rashes. Musculoskeletal: No midline spinal or extremity tenderness. Pelvis was stable. Both hips nontender on rotation or axial loading. Cervical spine nontender. Psychiatric: Not agitated. Emergency Department course/MDM: 2 mg IV Ativan. CBC chemistry. Presents tremulous and alcohol withdrawal but does not appear to have sustained any significant injury and clinical examination. Cervical spine cleared clinically. Additional 2 mg IV Ativan given. 1812: Still not able to walk, still tremulous, additional mg Ativan to total 6. 1841: 93% saturation. 2026: Too unsteady, unable to ambulate, very shaky. Additional 2 mg IV Ativan , admission for withdrawal. Constitutional: Initial Vital Signs Temperature (C) 36.7 C 09/05/18 16:48 Heart Rate 121 H 09/05/18 16:48 Respiratory Rate 20 09/05/18 16:48 Blood Pressure 137/80 H 09/05/18 16:48 O2 Sat (%) 98 09/05/18 16:48 O2 Delivery Mode Room Air O2 (L/minute) 2 Allergies/Adverse Reactions: No Known Allergies Allergy (Verified 08/18/18 15:55) Home Medications: Medication Instructions Recorded NK [No Known Home Meds] 09/05/18 Medical Decision Making Differential Diagnosis: Differential for shaking and weakness considered including but not limited to alcohol withdrawal, metabolic abnormality, seizure disorder, myoclonic tremors. Consult/Admit Bed Type: [facility] 2036 Critical Care Time: Critical care time spent by me, Dr. Clark, exclusively with the care of this patient was 40 minutes, exclusive of PA or GATHERING MACHINE FEEDER time and exclusive of separate procedures. The organ system at risk was metabolic neurologic and I ordered multiple evaluations and multiple doses of IV benzodiazepines to stabilize the patient and prevent worsening of the patient's condition. - Data Points Laboratory Results: Laboratory Results 09/05/18 16:40 09/05/18 16:40 09/05/18 09/05/18 09/05/18 17:03 16:40 16:40 WBC 5.16 10^3/uL 10^3/uL (3.80-9.50) RBC 3.73 10^6/uL L 10^6/uL (4.40-6.38) Hgb 12.5 g/dL L g/dL (13.7-17.5) Hct 37.5 % L % (40.0-51.0) MCV 100.5 fL H fL (81.5-99.8) MCH 33.5 pg pg (27.9-34.1) MCHC 33.3 g/dL g/dL (32.4-36.7) RDW 14.2 % % (11.5-15.2) Plt Count 143 10^3/uL L 10^3/uL (150-400) MPV 10.8 fL fL (8.7-11.7) Neut % (Auto) 70.6 % % (39.3-74.2) Lymph % (Auto) 20.2 % % (15.0-45.0) [place] % (Auto) 7.4 % % (4.5-13.0) Eos % (Auto) 0.4 % L % (0.6-7.6) Baso % (Auto) 1.2 % % (0.3-1.7) Nucleat RBC Rel Count 0.0 % % (0.0-0.2) Absolute Neuts (auto) 3.65 10^3/uL 10^3/uL (1.70-6.50) Absolute Lymphs (auto) 1.04 10^3/uL 10^3/uL (1.00-3.00) Absolute Monos (auto) 0.38 10^3/uL 10^3/uL (0.30-0.80) Absolute Eos (auto) 0.02 10^3/uL L 10^3/uL (0.03-0.40) Absolute Basos (auto) 0.06 10^3/uL 10^3/uL (0.02-0.10) Absolute Nucleated RBC 0.00 10^3/uL 10^3/uL (0-0.01) Immature Gran % 0.2 % % (0.0-1.1) Immature Gran # 0.01 10^3/uL 10^3/uL (0.00-0.10) PT 12.4 SEC SEC (12.0-15.0) INR 0.96 (0.83-1.16) Sodium 138 mEq/L mEq/L (135-145) Potassium 4.6 mEq/L mEq/L (3.5-5.2) Chloride 104 mEq/L mEq/L (97-110) Carbon Dioxide 16 mEq/l L mEq/l (22-31) Anion Gap 18 mEq/L H mEq/L (6-14) BUN 20 mg/dL mg/dL (7-23) Creatinine 0.9 mg/dL mg/dL (0.7-1.3) Estimated GFR > 60 Glucose 218 mg/dL H mg/dL (70-100) Calcium 9.2 mg/dL mg/dL (8.5-10.4) Medications Given: Famotidine/Sodium Chloride (Pepcid 20 Mg (Premix)) 50 mls @ 200 mls/hr IV Q12HRS [facility] Stop: 03/04/19 20:59 Last Admin: 09/05/18 21:17 Dose: 50 mls Thiamine HCl 500 mg/ Sodium (Chloride) 105 mls @ 210 mls/hr IV Q24H [facility] Stop: 09/07/18 22:14 Last Admin: 09/05/18 22:13 Dose: 105 mls Discontinued Medications Chlordiazepoxide HCl (Librium) 75 mg PO ONCE ONE Stop: 09/05/18 21:01 Last Admin: 09/05/18 21:18 Dose: 75 mg Sodium Chloride (Ns) 1,000 mls @ 0 mls/hr IV EDNOW ONE; Wide Open PRN Reason: Protocol Stop: 09/05/18 18:15 Last Admin: 09/05/18 18:16 Dose: 1,000 mls Lorazepam (Ativan Injection) 2 mg IVP EDNOW ONE Stop: 09/05/18 16:48 Last Admin: 09/05/18 17:05 Dose: 2 mg Lorazepam (Ativan Injection) 2 mg IVP EDNOW ONE Stop: 09/05/18 17:17 Last Admin: 09/05/18 17:30 Dose: 2 mg Lorazepam (Ativan Injection) 2 mg IVP EDNOW ONE Stop: 09/05/18 18:14 Last Admin: 09/05/18 18:16 Dose: 2 mg Lorazepam (Ativan Injection) 2 mg IVP EDNOW ONE Stop: 09/05/18 20:28 Last Admin: 09/05/18 20:29 Dose: 2 mg Lorazepam (Ativan Injection) 2 mg IVP Q6HRS [facility] Stop: 09/10/18 00:00 Last Admin: 09/05/18 21:45 Dose: 2 mg Departure - Departure Disposition: [facility] Acute Clinical Impression: Alcohol withdrawal Qualifiers: Complication of substance-induced condition: uncomplicated Qualified Code(s): F10.230 - Alcohol dependence with withdrawal, uncomplicated Condition: Serious
[2018-09-05] MEDS ORDERED: LORazepam 2 MG/ML INJ IVP ONE ×4 (16:47→20:27)
[2018-09-05 17:08] LABS: PLATELET COUNT 143 10^3/uL (150-400)
[2018-09-05] MEDS ORDERED: LORazepam 2 MG/ML INJ ONE (18:14)
[2018-09-05] MEDS ORDERED: NS 1,000 ML IV ONE (18:14)
[2018-09-05] MEDS ORDERED: FLUMAZENIL 0.5 MG/5 ML MDV IVP PRN (20:57)
[2018-09-05] MEDS ORDERED: chlordiazePOXIDE 25 MG CAP PO ONE (21:00)
[2018-09-05] MEDS ORDERED: LORazepam 2 MG/ML INJ IVP PRN (21:15)
[2018-09-05] MEDS ORDERED: LORazepam 1 MG TAB PO PRN (21:15)
[2018-09-05] MEDS: FAMOTIDINE 20 MG/NACL 50 ML IV SCH (21:17)
[2018-09-05 21:42] LABS: INR 0.96 (0.83-1.16); PROTIME(PATIENT) 12.4 SEC (12.0-15.0)
[2018-09-05] MEDS: THIAMINE HCL 500 MG in NS 100 ML IV SCH (22:13)
[2018-09-05] MEDS ORDERED: PROTOCOL POTASSIUM 1 DOSE MISC PRN (22:17)
[2018-09-05] MEDS ORDERED: PROTOCOL MAGNESIUM 1 DOSE IV PRN (22:17)
--- NOTE | 2018-09-05 22:26 | PDGENHP ---
History and Physical - Chief Complaint alcohol withdrawal - History of Present Illness 67 yo male evaluated in the ER for ETOH WD. The pt follows commands, no problem swallowing, but not a reliable historian. Hx is obtained from the medical records. He reports his last drink was a day ago. Cannot quantify what he normally drinks. Very tremulous. Reports no hx of sz activity. Fell earlier. ROS: Denies pain, sob, no/v, fever, or other PAST MEDICAL HISTORY: Alcoholism admitted March 2018 for withdrawal. Social history: etoh use (heavy), unclear tobacco use FmHx: non contributory History Information - Allergies/Home Medication List Allergies/Adverse Reactions: No Known Allergies Allergy (Verified 08/18/18 15:55) Home Medications: NK [No Known Home Meds] 09/05/18 [Last Taken Unknown] I have personally reviewed and updated: medical history, social history - Past Medical History Additional medical history: ETOH abuse - Surgical History Additional surgical history: Patient tells me he had Lasik surgery - Family History Additional family history: Asked, denies - Social History Smoking Status: Never smoked Review of Systems Review of Systems: Physical Exam Physical Exam: Temp Pulse Resp BP Pulse Ox 36.7 C 98 16 146/89 H 98 09/05/18 22:14 09/05/18 22:14 09/05/18 22:14 09/05/18 22:14 09/05/18 22:14 Constitutional: no apparent distress, chronically ill appearing Eyes: PERRL, EOMI Ears, Nose, Mouth, Throat: dry mucous membranes Cardiovascular: tachycardia Respiratory: no respiratory distress, no rales or rhonchi, clear to auscultation Gastrointestinal: normoactive bowel sounds, soft, non-tender abdomen Skin: warm Neurologic: other (tremulous), No AAOx3 Psychiatric: encephalopathic, anxious, No thought process linear Lymph, Heme, Immunologic: No petechiae Lab Data & Imaging Review 09/05/18 16:40 09/05/18 16:40 WBC 5.16 10^3/uL (3.80-9.50) 09/05/18 16:40 RBC 3.73 10^6/uL (4.40-6.38) L 09/05/18 16:40 Hgb 12.5 g/dL (13.7-17.5) L 09/05/18 16:40 Hct 37.5 % (40.0-51.0) L 09/05/18 16:40 MCV 100.5 fL (81.5-99.8) H 09/05/18 16:40 MCH 33.5 pg (27.9-34.1) 09/05/18 16:40 MCHC 33.3 g/dL (32.4-36.7) 09/05/18 16:40 RDW 14.2 % (11.5-15.2) 09/05/18 16:40 Plt Count 143 10^3/uL (150-400) L 09/05/18 16:40 MPV 10.8 fL (8.7-11.7) 09/05/18 16:40 Neut % (Auto) 70.6 % (39.3-74.2) 09/05/18 16:40 Lymph % (Auto) 20.2 % (15.0-45.0) 09/05/18 16:40 [place] % (Auto) 7.4 % (4.5-13.0) 09/05/18 16:40 Eos % (Auto) 0.4 % (0.6-7.6) L 09/05/18 16:40 Baso % (Auto) 1.2 % (0.3-1.7) 09/05/18 16:40 Nucleat RBC Rel Count 0.0 % (0.0-0.2) 09/05/18 16:40 Absolute Neuts (auto) 3.65 10^3/uL (1.70-6.50) 09/05/18 16:40 Absolute Lymphs (auto) 1.04 10^3/uL (1.00-3.00) 09/05/18 16:40 Absolute Monos (auto) 0.38 10^3/uL (0.30-0.80) 09/05/18 16:40 Absolute Eos (auto) 0.02 10^3/uL (0.03-0.40) L 09/05/18 16:40 Absolute Basos (auto) 0.06 10^3/uL (0.02-0.10) 09/05/18 16:40 Absolute Nucleated RBC 0.00 10^3/uL (0-0.01) 09/05/18 16:40 Immature Gran % 0.2 % (0.0-1.1) 09/05/18 16:40 Immature Gran # 0.01 10^3/uL (0.00-0.10) 09/05/18 16:40 PT 12.4 SEC (12.0-15.0) 09/05/18 17:03 INR 0.96 (0.83-1.16) 09/05/18 17:03 Sodium 138 mEq/L (135-145) 09/05/18 16:40 Potassium 4.6 mEq/L (3.5-5.2) 09/05/18 16:40 Chloride 104 mEq/L (97-110) 09/05/18 16:40 Carbon Dioxide 16 mEq/l (22-31) L 09/05/18 16:40 Anion Gap 18 mEq/L (6-14) H 09/05/18 16:40 BUN 20 mg/dL (7-23) 09/05/18 16:40 Creatinine 0.9 mg/dL (0.7-1.3) 09/05/18 16:40 Estimated GFR > 60 09/05/18 16:40 Glucose 218 mg/dL (70-100) H 09/05/18 16:40 Calcium 9.2 mg/dL (8.5-10.4) 09/05/18 16:40 Assessment & Plan Assessment: Alcohol withdrawal (Acute) AGMA Dehydration Hyperglycemia, no reports hx of DM Acute Encephalopathy, due to ETOH WD Plan: I ordered Librium 75mg and that with the previous Ativan seems to have calmed him down. He is actually now asleep in his room. Will schedule the Librium at 50 TID and start CIWA. No Precedex at this time Will provide IVF check A1C repeat labs in am. tele total critical care time spent on the mgmt of this pt including coordination and discussion with the ER team is 65 mins
[2018-09-05] MEDS: NS W/ 20 KCl/L 1,000 ML IV SCH (23:01)
[2018-09-06] MEDS ORDERED: LORazepam 2 MG/ML INJ IVP SCH
[2018-09-06] MEDS: LORazepam 2 MG/ML INJ IVP PRN ×3 (03:56→21:06)
[2018-09-06] MEDS ORDERED: MAGNESIUM SULF 1 GM/DEXTROSE 100 ML IV ONE (03:58)
--- NOTE | 2018-09-06 08:36 | HOSPPROG ---
Hospitalist Progress Note Assessment/Plan: DIAGNOSES: * Acute alcohol withdrawal with acute metabolic encephalopathy * Metabolic acidosis with anion gap * Ataxia with fall, hit head 2 days before admission; history of falls with head injury in past -would worry about the possibility of hygromas or other factors involved; his memory of details from history is very poor * Dehydration * Hyperglycemia, appears to be resolving * Acute hepatitis likely alcohol-induced, mild * Macrocytic anemia suspect is due to his alcohol PLANS: * Continue management of withdrawal by CIWA guided treatment * CT scan of head this morning * Thiamin replacement * Nutrition as able * DVT prophylaxis to be determined after CT head * Ulcer prophylaxis * Await hemoglobin A1c testing * Physical occupational therapy consult, fall risk precautions * Could consider moving to med surge today depending on his progress and the results of his CT scan will need ongoing hospital care due to severe ataxia, ongoing delirium tremens/ encephalopathy seen by me today on multidisc rounds and hospitalist rounds reviewed w Dr Kelley SUBJECTIVE: Patient says he feels weak and tired States very poor balance, recalls falling 2 days ago and knows that he has had but does not recall any details of that event we will how things have been going previous to that recently OBJECTIVE Vitals reviewed: All stable without fever so far Air Defense Specialist, my review: Sinus CIWA: Score of 13 in the ER, numbers better now on Librium and Ativan Exam: alert interactive, talkative Very poor memory, mildly disoriented, mild tremor skin warm dry color ok resps not labored lungs clear BSs heart regular abd soft nondistended nontender, bowel sounds present limbs warm, no edema iv site ok Lab data: Repeat metabolic panel shows improvement and acid-base with resolution of anion gap, also the hyperglycemia was resolved on repeat chemistry Potassium and magnesium stable this morning Hemoglobin A1c pending Objective: Vital Signs Temp Pulse Resp BP Pulse Ox 36.9 C 88 18 141/82 H 99 09/06/18 04:00 09/06/18 06:00 09/06/18 06:00 09/06/18 06:00 09/06/18 06:00 Laboratory Results 09/06/18 06:20 09/05/18 09/06/18 09/07/18 06:59 06:59 06:59 Intake Total 2800 Output Total 1350 Balance 1450 PT 12.4 SEC (12.0-15.0) 09/05/18 17:03 INR 0.96 (0.83-1.16) 09/05/18 17:03 - Time Spent With Patient Time Spent with Patient: greater than 35 minutes Time Spent with Patient: Greater than 35 minutes spent on this patients care, greater than 50% of time spent counseling, educating, and coordinating care regarding the above mentioned plan. ICD10 Worksheet Patient Problems: Problems Problem Status Onset Alcohol withdrawal Acute Alcohol intoxication Acute Cervical strain Acute Facial abrasion Acute Facial contusion Acute Fall Acute Head injury Acute
[2018-09-06] MEDS: chlordiazePOXIDE 25 MG CAP PO SCH ×3 (08:43→21:06)
[2018-09-06] MEDS: FOLIC ACID 1 MG TAB PO SCH (08:43)
[2018-09-06] MEDS: FAMOTIDINE 20 MG/NACL 50 ML IV SCH (08:43)
[2018-09-06] MEDS: NS W/ 20 KCl/L 1,000 ML IV SCH (08:55)
--- NOTE | 2018-09-06 13:14 | PDMN ---
Medical Necessity Medical necessity: [facility] M595 substance related disorder 2 days;. Admission to Inpatient Level of Care for Substance-Related Disorder for Adult is indicated due to ALL of the following. Alcohol or sedative withdrawal signs with high-risk indicator are present as indicated by ALL of the following[K] CIWA-Ar Calculator: tremor , elevated risk dues to historic factors, hx of delirium due to ETOH W/d ,. pt very tremulous, encephalopathy due to ETOH W/d, hyperglycemic, dehydration, AGMA, anticipate > 2 MN ongoing med nec care.
--- NOTE | 2018-09-06 13:30 | GCON ---
[f rep st] CONSULTATION CRITICAL CARE CONSULTATION DATE OF CONSULTATION: 09/06/2018 HPI: This patient is a 67-year-old male with a longstanding history of alcohol abuse as well as with drawal and gait instability that has been noted at least since March. He was admitted yesterday c omplaining of a fall, which has been the case in many times in the past. He hit his tooth but had a cervical spine cleared in the ED clinically. He had tremors at that time and was given Ativan and tr ansferred to the ICU for ongoing management. Interestingly, in the ICU he has not required a Precede x drip and is on Librium and is relatively stable over this period of time. REVIEW OF SYSTEMS: Otherwise negative. PAST MEDICAL HISTORY: Includes alcohol withdrawal as stated above, gait instability. PAST SURGICAL HISTORY: Includes a testicular cyst surgery remotely. CURRENT MEDICATIONS: Include Librium, Pepcid, folate, CIWA protocol, thiamin, electrolyte protocol. PHYSICAL EXAM: VITAL SIGNS: His blood pressure was 123/76. Heart rate 88. Respirations 16. Oxyge n saturation 94% on room air. GENERAL: He was in no apparent distress, able to speak in full senten shai without using accessory muscles for breathing, was somewhat tremulous, but no distress. HEENT: Pupils equally round, react to light. Nonicteric and noninjected. Mucous membranes moist without er ythema or exudate. NECK: Supple without adenopathy, jugular vein distention. LUNGS: Breath sounds clear to auscultation bilaterally without wheeze, rubs, rales. HEART: A regular rate and rhythm. ABDOMEN: Soft, nontender, nondistended without hepatosplenomegaly. EXTREMITIES: No clubbing, cyano sis, or edema. NEUROLOGICAL: Nonfocal. OBJECTIVE DATA: Includes a white count of 5.1, hematocrit 37, platelets 143. Basic metabolic panel was initially remarkable for an anion gap of 18, which resolved with fluids to 9. Creatinine was nor mal. LFTs were slightly elevated with an AST of 66 and an ALT of 45. ASSESSMENT/PLAN: 1. Alcohol with possible withdrawal. He may have underlying tremor related to central nervous syste m abnormalities related to his chronic alcoholism. He is relatively stable at this time, probably do es not necessarily need intensive care unit status. In any case, given his lengthy history of repeat ed withdrawal episodes and having voiced many times in the past that he has no desire to quit drinkin g, I would prefer that we supply him with minimal alcohol to prevent withdrawal rather than escalatin g a withdrawal protocol. Of note, he has had multiple emergency room visits as well as hospital admi ssions. 2. Gait instability. This is a chronic problem. It is probably related to underlying Wernicke ence phalopathy or alcoholic cerebellar degeneration. The only real treatment is to give thiamin acutely and abstinence from alcohol. Physical Therapy and Occupational Therapy can work with him to make dina e that he is relatively stable. 3. Mild LFT elevation probably related to his alcohol as well. It should resolve on its own. /[id number]/MODL
--- NOTE | 2018-09-06 15:20 | ASMTCMCOM ---
CM Note CM Note Notes: CM reviewed pt chart. Pt was asleep when CM attempted to meet with him. 67-year-old male was admitted to the ER for alcohol withdrawal. RN reports that pt stated that he lives at home by himself. It does not appear that he has a PCP. CM to follow. Plan: TBD Date Signed: 09/06/2018 03:19 PM Electronically Signed By:Kira Espinoza
[2018-09-06] MEDS: FAMOTIDINE 20 MG TAB PO SCH (21:06)
[2018-09-06] MEDS: THIAMINE HCL 500 MG in NS 100 ML IV SCH (21:06)
[2018-09-07] MEDS: LORazepam 2 MG/ML INJ IVP PRN ×8 (01:25→14:23)
[2018-09-07] MEDS: FOLIC ACID 1 MG TAB PO SCH (09:20)
[2018-09-07] MEDS: FAMOTIDINE 20 MG TAB PO SCH ×2 (09:20→21:18)
[2018-09-07] MEDS: chlordiazePOXIDE 25 MG CAP PO SCH ×3 (09:20→21:19)
[2018-09-07] MEDS: BEER 1 EACH EA PO PRN (11:00)
[2018-09-07] MEDS ORDERED: HALOPERIDOL LACT 5 MG/ML INJ IM ONE (11:50)
--- NOTE | 2018-09-07 11:55 | HOSPPROG ---
Hospitalist Progress Note Assessment/Plan: DIAGNOSES: * Acute alcohol withdrawal with acute metabolic encephalopathy -at present escalating agitation and becoming aggressive, endangering himself * Metabolic acidosis with anion gap * Ataxia with fall, hit head 2 days before admission; history of falls with head injury in past * Dehydration * Hyperglycemia, appears to be resolving * Acute hepatitis likely alcohol-induced, mild * Macrocytic anemia suspect is due to his alcohol PLANS: * due to safety concerns and confusion I have placed him on medical detainer at this time * Continue management of withdrawal by CIWA guided treatment * will give some haldol now as he is becoming more agitated and aggressive with nurses, pulled IV out * may need to use precedex * Thiamin replacement * Nutrition as able * DVT prophylaxis * Ulcer prophylaxis * Physical occupational therapy as able, fall risk precautions * will need ongoing hospital care due to severe ataxia, ongoing delirium tremens/ encephalopathy seen by me today on multidisc rounds and hospitalist rounds reviewed w Dr Kelley SUBJECTIVE: The patient rambling in conversation, hard to get a clear picture of symptoms but denies any pain He is disoriented at this time Per nursing staff he has been increasingly agitated this morning OBJECTIVE Vitals reviewed: All stable without fever so far Assistant To The Dean, my review: Sinus CIWA: Current CIWA 19 on medications Exam: -Initial exam this am:alert but very slow in mentation, interactive, talkative, disoriented, states he is at "[facility]", does not know the day does not know the that he is in hospital, does not know where he is, is able to say [facility] is the town, agitated, continually trying to get up out of bed despite being warned that he is at high risk of fall and injury and request that he stay in bed, is not at all aware of his fall risk despite being very clearly unable to stand on his feet when we assist him to his feet, unable to tell me what he ate for breakfast, fairly agitated, tremor present reexam at 11:50 now much more agitated, remains disoriented, getting physically agressive, requires 4 staff to keep him in bed at moment for safety -skin warm dry color ok -resps not labored -lungs clear BSs -heart regular -abd soft nondistended nontender, bowel sounds present -limbs warm, no edema iv site ok Lab data: Electrolytes remained in good range Hemoglobin A1c normal Imaging studies: I reviewed CT scan images from yesterday, there are no hygromas or bleeds intracranial and no other acute abnormalities, there is significant atrophy Objective: Vital Signs Temp Pulse Resp BP Pulse Ox 37.0 C 98 18 126/82 H 95 09/06/18 20:00 09/07/18 07:37 09/07/18 04:49 09/07/18 07:37 09/07/18 07:37 Laboratory Results 09/07/18 04:45 09/06/18 09/07/18 09/08/18 06:59 06:59 06:59 Intake Total 2800 1200 Output Total 1350 1200 Balance 1450 0 PT 12.4 SEC (12.0-15.0) 09/05/18 17:03 INR 0.96 (0.83-1.16) 09/05/18 17:03 - Time Spent With Patient Time Spent with Patient: greater than 35 minutes Time Spent with Patient: Greater than 35 minutes spent on this patients care, greater than 50% of time spent counseling, educating, and coordinating care regarding the above mentioned plan. ICD10 Worksheet Patient Problems: Problems Problem Status Onset Alcohol withdrawal Acute Alcohol intoxication Acute Cervical strain Acute Facial abrasion Acute Facial contusion Acute Fall Acute Head injury Acute
--- NOTE | 2018-09-07 12:06 | ASMTCMCOM ---
CM Note CM Note Notes: Spoke with patient's nurse who states patient is in need of a bus pass. Patient may be ready for discharge today. A bus pass was provided for the patient. Therapies have not assessed yet. Awaiting their recommendations. CM will follow. Date Signed: 09/07/2018 12:05 PM Electronically Signed By:Keiry Valadez LCSW
[2018-09-07] MEDS: HALOPERIDOL LACT 5 MG/ML INJ IVP PRN (14:25)
[2018-09-07] MEDS: DEXMEDETOMIDINE HCL 400 MCG in NS 100 ML IV SCH (14:50)
[2018-09-07] MEDS: LORazepam 2 MG/ML INJ IVP SCH ×2 (16:37→18:26)
[2018-09-07] MEDS: THIAMINE HCL 500 MG in NS 100 ML IV SCH (21:47)
[2018-09-08] MEDS: LORazepam 2 MG/ML INJ IVP SCH ×2 (00:10→06:38)
[2018-09-08] MEDS ORDERED: MAGNESIUM SULF 2 GM/WATER 50 ML IV ONE (08:21)
[2018-09-08] MEDS: POTASSIUM Cl (KCl) 100 ML IV SCH ×4 (08:47→11:45)
[2018-09-08] MEDS: LORazepam 2 MG/ML INJ IVP PRN ×7 (09:00→19:20)
[2018-09-08] MEDS: chlordiazePOXIDE 25 MG CAP PO SCH ×3 (09:08→19:17)
--- NOTE | 2018-09-08 09:18 | HOSPPROG ---
Hospitalist Progress Note Assessment/Plan: DIAGNOSES: * Acute alcohol withdrawal with acute metabolic encephalopathy -at present escalating agitation and becoming aggressive, endangering himself * Metabolic acidosis with anion gap - resolving * hypomagnesemia/hypokalemia * Ataxia with fall, hit head 2 days before admission; history of falls with head injury in past * Dehydration * Hyperglycemia, appears to be resolving * Acute hepatitis likely alcohol-induced, mild * Macrocytic anemia suspect is due to his alcohol PLANS: * due to safety concerns and confusion he is on medical detainer * Continue management of withdrawal by CIWA guided treatment * Thiamin replacement * Nutrition as able * DVT prophylaxis * Ulcer prophylaxis * Physical occupational therapy as able, fall risk precautions will need ongoing ICU care due to severe ataxia, ongoing delirium tremens/ encephalopathy seen by me today on multidisc rounds and hospitalist rounds reviewed w Dr Kelley SUBJECTIVE: largely sedated but mumbles answers to some ?s, denies any discomfort, nausea, or other complaint since starting haldol and precedex he has been much more cooperative w nursing care per RN OBJECTIVE Vitals reviewed: All stable without fever so far Special Events Planner, my review: Sinus CIWA: since haldol and precedex added ranging 1-7 Exam: -currently on precedex drip -is awake but quite groggy, not agitated, seems relaxed -skin warm dry color ok -resps not labored -lungs clear BSs -heart regular -abd soft nondistended nontender, bowel sounds present -limbs warm, no edema iv site ok Lab data: K and magnesium both low this am Objective: Vital Signs Temp Pulse Resp BP Pulse Ox 37.0 C 97 21 H 127/84 H 94 09/06/18 20:00 09/08/18 08:00 09/08/18 08:00 09/08/18 08:00 09/08/18 08:00 Laboratory Results 09/08/18 06:10 09/07/18 09/08/18 09/09/18 06:59 06:59 06:59 Intake Total 1200 1143 Output Total 1200 2000 Balance 0 -857 PT 12.4 SEC (12.0-15.0) 09/05/18 17:03 INR 0.96 (0.83-1.16) 09/05/18 17:03 ICD10 Worksheet Patient Problems: Problems Problem Status Onset Alcohol withdrawal Acute Alcohol intoxication Acute Cervical strain Acute Facial abrasion Acute Facial contusion Acute Fall Acute Head injury Acute
[2018-09-08] MEDS: NS W/ 20 KCl/L 1,000 ML IV SCH (09:20)
[2018-09-08] MEDS: HALOPERIDOL LACT 5 MG/ML INJ IVP PRN ×2 (10:29→17:36)
[2018-09-08] MEDS: FAMOTIDINE 20 MG TAB PO SCH ×2 (10:36→19:17)
[2018-09-08] MEDS: THIAMINE HCL 100 MG TAB PO SCH (10:36)
[2018-09-08] MEDS: FOLIC ACID 1 MG TAB PO SCH (10:36)
--- NOTE | 2018-09-08 13:02 | PDINTPN ---
Import Coordination And Production Head Progress Note Assessment/Plan: 67 M with long etoh history admitted 09/05 with symptoms of etoh wd and gait instability. He was initially given beer as he has had multiple admission for etoh wd and has clearly stated no desire to quit, despite chronic gait instability and frequent falls. * etoh wd- he did not respond adequately to supplying beer, so started CIWA with librium, ativan and precedex. Precedex dc'd this am and so far stable. * Gait instability likely related to either Wernickes or etoh related cerebellar degeneration. Only therapy I am aware of is abstinence, but his poor ambulation will likely require SNF (if he will cooperate). Will have to readdress once past current wd. Currently on medical detainer as he is not decisional at the moment. Subjective: patient was near discharge 09/07 when he demonstrated inability to walk and escalating etoh wd symptoms prompting precedex drip. Security was involved. Objective: Vital Signs Temp Pulse Resp BP Pulse Ox 37.0 C 85 20 115/66 94 09/06/18 20:00 09/08/18 12:00 09/08/18 12:00 09/08/18 12:00 09/08/18 12:00 Laboratory Results 09/08/18 06:10 09/07/18 09/08/18 09/09/18 05:59 05:59 05:59 Intake Total 1200 1143 Output Total 1200 2000 Balance 0 -857 PT 12.4 SEC (12.0-15.0) 09/05/18 17:03 INR 0.96 (0.83-1.16) 09/05/18 17:03 Physical Exam - Physical Exam General Appearance: no apparent distress, obtunded EENT: PERRL/EOMI Neck: supple Respiratory: lungs clear, normal breath sounds, decreased breath sounds, No respiratory distress, No accessory muscle use Cardiac/Chest: regular rate, rhythm, No edema, No JVD Abdomen: non-tender, soft, No distended Skin: normal color, warm/dry, No cyanosis Lymphatic: no adenopathy Extremities: No pedal edema Neuro/Psych: cognition abnormalities, No oriented x 3, No abnormal survey operations director II-XII ICD10 Worksheet Patient Problems: Problems Problem Status Onset Alcohol withdrawal Acute Alcohol intoxication Acute Cervical strain Acute Facial abrasion Acute Facial contusion Acute Fall Acute Head injury Acute
[2018-09-08] MEDS: BEER 1 EACH EA PO PRN (18:22)
--- NOTE | 2018-09-09 08:03 | HOSPPROG ---
Hospitalist Progress Note Assessment/Plan: XC: Notified by RN of acute worsening of hypoxia this morning around 7:30 AM. Patient now requiring >15 L facemask. BS c/w rhonchi R>L. CXR w likely RLL aspiration, which would explain acute status change. I will order ABG, Unasyn, and have discussed with RT moving to vapotherm if necessary. Objective: Vital Signs Temp Pulse Resp BP Pulse Ox 37.0 C 87 19 96/63 L 90 L 09/08/18 19:40 09/09/18 04:00 09/09/18 04:00 09/09/18 04:00 09/09/18 04:00 Laboratory Results 09/09/18 04:16 09/08/18 09/09/18 09/10/18 05:59 05:59 05:59 Intake Total 1143 2412 Output Total 1999 9085 Balance -857 1137 PT 12.4 SEC (12.0-15.0) 09/05/18 17:03 INR 0.96 (0.83-1.16) 09/05/18 17:03 ICD10 Worksheet Patient Problems: Problems Problem Status Onset Facial contusion Acute Facial abrasion Acute Head injury Acute Alcohol intoxication Acute Cervical strain Acute Fall Acute Alcohol withdrawal Acute
[2018-09-09] MEDS: AMPICILLIN/SULBACTAM 3 GM in NS 100 ML IV SCH ×4 (08:29→23:37)
[2018-09-09] MEDS ORDERED: IOPAMIDOL (ISOVUE 370) 100 ML BTL IV ONE (08:39)
[2018-09-09] MEDS ORDERED: ENOXAPARIN 80 MG/0.8 ML SYR SC SCH (09:00)
--- NOTE | 2018-09-09 09:56 | PDINTPN ---
Marketing Recruiter Progress Note Assessment/Plan: Assessment: 67 M with long etoh history admitted 09/05 with symptoms of etoh wd and gait instability. He was initially given beer as he has had multiple admission for etoh wd and has clearly stated no desire to quit, despite chronic gait instability and frequent falls. * etoh wd- he did not respond adequately to supplying beer, so started CIWA with librium, ativan and precedex. Precedex dc'd this am. No signs of withdrawal currently * Gait instability likely related to either Wernickes or etoh related cerebellar degeneration. Only therapy I am aware of is abstinence, but his poor ambulation will likely require SNF (if he will cooperate). Will have to readdress once past current wd. Currently on medical detainer as he is not decisional at the moment. * Disposition: May need long-term placement, as he is unlikely to remain safe if living independently. * Nutrition: Limited nutrition since hospitalization. Plan: Stop scheduled benzodiazepines and reduce dose of p.r.n. Benzodiazepines. Try to avoid using Precedex or other sedation. Increase activity as tolerated... Try to get chair today. Restart thiamine. Consider placing a feeding tube if unable to eat in the next 24-48 hours. 09/09/18 11:38 Subjective: Somnolent but arousable. Denies pain. Objective: Vital Signs Temp Pulse Resp BP Pulse Ox 37.0 C 87 19 96/63 L 90 L 09/08/18 19:40 09/09/18 04:00 09/09/18 04:00 09/09/18 04:00 09/09/18 04:00 Laboratory Results 09/09/18 04:16 09/08/18 09/09/18 09/10/18 05:59 05:59 05:59 Intake Total 1143 2412 Output Total 1999 1275 Balance -857 1137 PT 12.4 SEC (12.0-15.0) 09/05/18 17:03 INR 0.96 (0.83-1.16) 09/05/18 17:03 Physical Exam - Physical Exam General Appearance: no apparent distress, No alert EENT: normal ENT inspection Neck: normal inspection Respiratory: rales (Left greater than right), No lungs clear, No normal breath sounds Cardiac/Chest: regular rate, rhythm, No edema Abdomen: normal bowel sounds, non-tender Skin: normal color, warm/dry Extremities: normal inspection Neuro/Psych: No alert, No oriented x 3 (Oriented x2), No motor weakness ICD10 Worksheet Patient Problems: Problems Problem Status Onset Alcohol withdrawal Acute Alcohol intoxication Acute Cervical strain Acute Facial abrasion Acute Facial contusion Acute Fall Acute Head injury Acute
--- NOTE | 2018-09-09 10:23 | HOSPPROG ---
Hospitalist Progress Note Assessment/Plan: DIAGNOSES: * Acute Hypoxemia Resp Failure, new onset today -suspect due to atelectasis and intrapulmonary shunt * Acute alcohol withdrawal with acute metabolic encephalopathy -requiring ongoing high dose sedation for safety * Metabolic acidosis with anion gap, persists as seen on ABG today * Fever new today, multiple possible etiologies but no clear defining finding * hypomagnesemia/hypokalemia * Ataxia with fall, hit head 2 days before admission; history of falls with head injury in past * Dehydration * Hyperglycemia, appears to be resolving * Acute hepatitis likely alcohol-induced, mild * Macrocytic anemia suspect is due to his alcohol PLANS: * CT scan of chest ordered and interpreted by me today * pulmonary toilet; up in chair if able; consider bipap; see if we are able to decrease sedation safely at all today * follow temps closely * Continue management of withdrawal by CIWA guided treatment * Thiamin replacement * Nutrition as able * DVT prophylaxis * Ulcer prophylaxis * due to safety concerns and confusion he is on medical detainer * Physical occupational therapy as able, fall risk precautions will need ongoing ICU care due to above issues seen by me today on multidisc rounds and hospitalist rounds reviewed w Dr Heller > 45 mins critical care time today SUBJECTIVE: sedated, arousable denies discomfort overnight he has developed significant resp issues and hypoxia OBJECTIVE Vitals reviewed: fairly tachypneic on high flow O2, tachycardic, BPs good; fever up to 38.8 today Mechanical Maintenance, my review: Sinus tach CIWA: since haldol and precedex added ranging 1-7 Exam: -currently on precedex drip -is awake but quite groggy, not agitated, seems relaxed -skin warm dry color ok -resps not labored -lungs clear BSs -heart regular -abd soft nondistended nontender, bowel sounds present -limbs warm, no edema iv site ok Lab data: chem panel, Mg in good range ABG 7.4 Imaging: I reveiewed CT chest images today: there is copd, marked bilateral dependent atelectasis/collapse, small amount of ascites Objective: Vital Signs Temp Pulse Resp BP Pulse Ox 37.3 C 113 H 30 H 150/89 H 95 09/09/18 09:58 09/09/18 09:58 09/09/18 09:58 09/09/18 09:58 09/09/18 09:58 Laboratory Results 09/09/18 04:16 09/08/18 09/09/18 09/10/18 06:59 06:59 06:59 Intake Total 1143 7912 Output Total 1999 2457 Balance -857 1137 PT 12.4 SEC (12.0-15.0) 09/05/18 17:03 INR 0.96 (0.83-1.16) 09/05/18 17:03 ICD10 Worksheet Patient Problems: Problems Problem Status Onset Alcohol withdrawal Acute Alcohol intoxication Acute Cervical strain Acute Facial abrasion Acute Facial contusion Acute Fall Acute Head injury Acute
[2018-09-09] MEDS: chlordiazePOXIDE 25 MG CAP PO SCH (11:07)
[2018-09-09] MEDS: FAMOTIDINE 20 MG TAB PO SCH ×2 (11:07→22:20)
[2018-09-09] MEDS: FOLIC ACID 1 MG TAB PO SCH (11:07)
[2018-09-09] MEDS: THIAMINE HCL 100 MG TAB PO SCH (11:08)
[2018-09-09] MEDS ORDERED: LORazepam 2 MG/ML INJ IVP PRN ×2 (11:22→22:42)
[2018-09-09] MEDS ORDERED: MAGNESIUM SULF 1 GM/DEXTROSE 100 ML IV ONE (11:37)
[2018-09-09] MEDS: THIAMINE HCL 500 MG in NS 100 ML IV SCH (11:50)
[2018-09-09] MEDS: DEXMEDETOMIDINE HCL 400 MCG in NS 100 ML IV SCH ×2 (12:37→23:37)
[2018-09-09] MEDS: chlordiazePOXIDE 25 MG CAP PO PRN (16:36)
[2018-09-09] MEDS ORDERED: NS 1,000 ML IV ONE (21:09)
[2018-09-09] MEDS ORDERED: NOREPINEPHRINE BITARTRATE 4 MG in NS 500 ML IV SCH (21:30)
[2018-09-09] MEDS: ACETAMINOPHEN 650 MG SUPP PR PRN (22:16)
[2018-09-09] MEDS: NS W/ 20 KCl/L 1,000 ML IV SCH ×2 (23:01→23:05)
[2018-09-10] MEDS: LORazepam 2 MG/ML INJ IVP PRN ×2 (04:56→23:11)
[2018-09-10] MEDS: AMPICILLIN/SULBACTAM 3 GM in NS 100 ML IV SCH (04:57)
[2018-09-10] MEDS: FAMOTIDINE 20 MG TAB PO SCH ×2 (09:00→19:22)
[2018-09-10] MEDS: FOLIC ACID 1 MG TAB PO SCH (09:00)
[2018-09-10] MEDS: THIAMINE HCL 500 MG in NS 100 ML IV SCH (09:00)
[2018-09-10] MEDS: THIAMINE HCL 100 MG TAB PO SCH (09:00)
[2018-09-10] MEDS: LORazepam 2 MG/ML INJ IVP SCH ×2 (09:01→19:15)
[2018-09-10] MEDS: ENOXAPARIN 40 MG/0.4 ML SYR SC SCH (12:08)
--- NOTE | 2018-09-10 14:29 | PDINTPN ---
Change Control Manager Progress Note Assessment/Plan: Assessment: 67 M with long etoh history admitted 09/05 with symptoms of etoh wd and gait instability. He was initially given beer as he has had multiple admission for etoh wd and has clearly stated no desire to quit, despite chronic gait instability and frequent falls. * etoh wd- he did not respond adequately to supplying beer, so started CIWA with librium, ativan and precedex. Weaned down over the last day or 2, nothing so far today No signs of withdrawal currently * Gait instability likely related to either Wernickes or etoh related cerebellar degeneration. Only therapy I am aware of is abstinence, but his poor ambulation will likely require SNF (if he will cooperate). Will have to readdress once past current wd. Currently on medical detainer as he is not decisional at the moment. * Disposition: May need long-term placement, as he is unlikely to remain safe if living independently. * Nutrition: Limited nutrition since hospitalization. Plan: Stop Benzodiazepines. Increase activity as tolerated... Stood up, and spending time in chair today. Continue thiamine. Consider placing a feeding tube if unable to eat adequately in the next 24-48 hours. Transfer to SDU. 09/10/18 14:30 Subjective: Feels a bit better. Still feels weak. Appetite improved. Objective: Vital Signs Temp Pulse Resp BP Pulse Ox 37.5 C 134 H 20 113/73 92 09/10/18 12:00 09/10/18 14:00 09/10/18 14:00 09/10/18 14:00 09/10/18 14:00 Laboratory Results 09/10/18 05:12 09/09/18 09/10/18 09/11/18 05:59 05:59 05:59 Intake Total 2412 1782.3 723 Output Total 1275 1100 Balance 1137 682.3 723 PT 12.4 SEC (12.0-15.0) 09/05/18 17:03 INR 0.96 (0.83-1.16) 09/05/18 17:03 Physical Exam - Physical Exam General Appearance: alert, no apparent distress EENT: normal ENT inspection Neck: normal inspection Respiratory: lungs clear, normal breath sounds Cardiac/Chest: regular rate, rhythm, No edema Abdomen: normal bowel sounds, non-tender Skin: normal color, warm/dry Extremities: normal inspection Neuro/Psych: alert, motor weakness (Generalized), No oriented x 3 ICD10 Worksheet Patient Problems: Problems Problem Status Onset Alcohol withdrawal Acute Alcohol intoxication Acute Cervical strain Acute Facial abrasion Acute Facial contusion Acute Fall Acute Head injury Acute
--- NOTE | 2018-09-10 15:33 | HOSPPROG ---
Hospitalist Progress Note Assessment/Plan: DIAGNOSES: * Acute alcohol withdrawal with acute metabolic encephalopathy -requiring ongoing high dose sedation for safety -quite a bit of tachycardia that fluctuates with his level of sedation, particularly high during days, when we have had him off of Precedex * Acute Hypoxemia Resp Failure -suspect due to atelectasis and intrapulmonary shunt * Fever -likely partly due to withdrawal but temperatures up to 39 worrisome for infection -have some ascites, concerning for possible SBP on treatment for that -today complains of urinary frequency and bladder discomfort, ? If could have UTI * Metabolic acidosis with anion gap * hypomagnesemia/hypokalemia * Ataxia with fall, hit head 2 days before admission; history of falls with head injury in past -this is an ongoing problem but is quite severe, do not expect he will be safe to be independent at discharge * Dehydration * Hyperglycemia, resolved * Acute hepatitis likely alcohol-induced, mild * Macrocytic anemia suspect is due to his alcohol PLANS: * Continue management of withdrawal by CIWA guided treatment * Continue Rocephin with possible SBP; as he is complaining of urinary frequency and dysuria will check UA * pulmonary toilet; up in chair if able; consider bipap; see if we are able to decrease sedation safely at all today * Thiamin replacement * Nutrition as able * DVT prophylaxis * Ulcer prophylaxis * due to safety concerns and confusion he is on medical detainer * Physical occupational therapy as able, fall risk precautions will need ongoing ICU care due to above issues seen by me today on multidisc rounds and hospitalist rounds reviewed w Dr Heller SUBJECTIVE: On less sedation so far today so was more conversant Mentions to me he feels overall "not well" Only specific complaint is urinary frequency and bladder discomfort with urinating overnight he has developed significant resp issues and hypoxia OBJECTIVE Vitals reviewed: Remains tachycardic 130s today, less tachypneic, BP is good, fever a bit better Container Filler, my review: Sinus tach up to 130s during day today off Precedex CIWA: Today CIWA as high as 8 on sedating meds Exam: -currently on precedex drip -is awake but quite groggy, not agitated, seems relaxed -skin warm dry color ok -resps not labored -lungs clear BSs -heart regular -abd soft nondistended nontender, bowel sounds present -limbs warm, no edema iv site ok Lab data: chem panel, Mg in good range ABG 7.4/ Imaging: I reveiewed CT chest images today: there is copd, marked bilateral dependent atelectasis/collapse, small amount of ascites Objective: Vital Signs Temp Pulse Resp BP Pulse Ox 37.5 C 134 H 20 113/73 92 09/10/18 12:00 09/10/18 14:00 09/10/18 14:00 09/10/18 14:00 09/10/18 14:00 Laboratory Results 09/10/18 05:12 09/09/18 09/10/18 09/11/18 06:59 06:59 06:59 Intake Total 2412 1782.3 723 Output Total 1275 1100 Balance 1137 682.3 723 PT 12.4 SEC (12.0-15.0) 09/05/18 17:03 INR 0.96 (0.83-1.16) 09/05/18 17:03 ICD10 Worksheet Patient Problems: Problems Problem Status Onset Alcohol withdrawal Acute Alcohol intoxication Acute Cervical strain Acute Facial abrasion Acute Facial contusion Acute Fall Acute Head injury Acute
[2018-09-10] MEDS: chlordiazePOXIDE 25 MG CAP PO PRN (19:14)
[2018-09-10] MEDS: ACETAMINOPHEN 650 MG SUPP PR PRN (19:23)
[2018-09-10] MEDS: HALOPERIDOL LACT 5 MG/ML INJ IVP PRN (23:13)
[2018-09-11] MEDS: chlordiazePOXIDE 25 MG CAP PO PRN (01:42)
[2018-09-11 06:47] LABS: PLATELET COUNT 162 10^3/uL (150-400)
[2018-09-11] MEDS: FOLIC ACID 1 MG TAB PO SCH (08:52)
[2018-09-11] MEDS: FAMOTIDINE 20 MG TAB PO SCH ×2 (08:52→23:18)
[2018-09-11] MEDS: THIAMINE HCL 100 MG TAB PO SCH (08:52)
[2018-09-11] MEDS: LORazepam 2 MG/ML INJ IVP SCH ×2 (08:53→11:16)
[2018-09-11] MEDS: ENOXAPARIN 40 MG/0.4 ML SYR SC SCH (08:53)
[2018-09-11] MEDS ORDERED: PROTOCOL POTASSIUM 1 DOSE MISC PRN (12:05)
[2018-09-11] MEDS ORDERED: POTASSIUM CL 10 MEQ TAB PO ONE (12:07)
[2018-09-11] MEDS ORDERED: LORazepam 2 MG/ML INJ IVP PRN (13:12)
--- NOTE | 2018-09-11 13:15 | PDINTPN ---
Information Broker Progress Note Assessment/Plan: Assessment: 67 M with long etoh history admitted 09/05 with symptoms of etoh wd and gait instability. He was initially given beer as he has had multiple admission for etoh wd and has clearly stated no desire to quit, despite chronic gait instability and frequent falls. * etoh wd- he did not respond adequately to supplying beer, so started CIWA with librium, ativan and precedex. Weaned down, having some intermittent agitation. * Gait instability likely related to either Wernickes and/or etoh related cerebellar degeneration. Only therapy I am aware of is abstinence, but his poor ambulation will likely require SNF (if he will cooperate). Will have to readdress once past current wd. Currently on medical detainer as he is not decisional at the moment. * Disposition: May need long-term placement, as he is unlikely to remain safe if living independently. * Nutrition: Limited nutrition since hospitalization. Plan: Low-dose scheduled Librium, and PRN IV Ativan. Increase activity as tolerated... Stood up, walked today, will try to increase time in chair again today. Continue thiamine. Consider placing a feeding tube if unable to eat adequately in the next 24-48 hours. Continue to monitor in SDU. 09/11/18 13:16 Subjective: Intermittent agitation, denies pain. Still feels unsteady standing. Objective: Vital Signs Temp Pulse Resp BP Pulse Ox 36.7 C 114 H 16 128/80 H 94 09/11/18 11:19 09/11/18 11:19 09/11/18 11:19 09/11/18 11:19 09/11/18 11:19 Laboratory Results 09/11/18 06:29 09/11/18 06:29 09/10/18 09/11/18 09/12/18 05:59 05:59 05:59 Intake Total 1782.3 1113 Output Total 1100 925 150 Balance 682.3 188 -150 PT 12.4 SEC (12.0-15.0) 09/05/18 17:03 INR 0.96 (0.83-1.16) 09/05/18 17:03 Physical Exam - Physical Exam General Appearance: alert, no apparent distress EENT: normal ENT inspection Neck: normal inspection Respiratory: lungs clear, normal breath sounds Cardiac/Chest: regular rate, rhythm, No edema Abdomen: normal bowel sounds, non-tender, soft Skin: normal color, warm/dry Extremities: normal inspection Neuro/Psych: alert, abnormal gait ICD10 Worksheet Patient Problems: Problems Problem Status Onset Alcohol withdrawal Acute Alcohol intoxication Acute Cervical strain Acute Facial abrasion Acute Facial contusion Acute Fall Acute Head injury Acute
--- NOTE | 2018-09-11 15:16 | HOSPPROG ---
Hospitalist Progress Note Assessment/Plan: # etOH abuse and w/d - currently on librium - cont thiamine # fever - not clearly infective - CT more c/w atelectasis, no abd pain or significant ascites to indicate SBP today - follow closely # tachycardia, sinus - suspect driven by etOH w/d, not infection # ataxia - very significant, possibly wernickes - cont thiamine # dvt ppx - lovenox Subjective: sitting sideways in chair; not complaining of any pain Objective: Vital Signs Temp Pulse Resp BP Pulse Ox 36.7 C 114 H 16 128/80 H 94 09/11/18 11:19 09/11/18 11:19 09/11/18 11:19 09/11/18 11:19 09/11/18 11:19 Laboratory Results 09/11/18 06:29 09/11/18 06:29 09/10/18 09/11/18 09/12/18 05:59 05:59 05:59 Intake Total 1782.3 1113 Output Total 1100 925 150 Balance 682.3 188 -150 PT 12.4 SEC (12.0-15.0) 09/05/18 17:03 INR 0.96 (0.83-1.16) 09/05/18 17:03 chart reviewed discussed with Dr Heller and ICU team on rounds ecg personally reviewed - Physical Exam Constitutional: other (confused) Cardiovascular: no murmur, rub, or gallop, tachycardia, No irregularly irregular Respiratory: no respiratory distress, no rales or rhonchi, clear to auscultation Gastrointestinal: normoactive bowel sounds, soft, non-tender abdomen, No guarding, No rebound, No distension ICD10 Worksheet Patient Problems: Problems Problem Status Onset Facial contusion Acute Facial abrasion Acute Head injury Acute Alcohol intoxication Acute Cervical strain Acute Fall Acute Alcohol withdrawal Acute
[2018-09-11] MEDS ORDERED: NS 1,000 ML IV ONE (15:40)
--- NOTE | 2018-09-11 16:50 | ASMTCMCOM ---
CM Note CM Note Notes: PT/OT have both recommended SNF for patient at discharge. However, patient is self pay and this may not be financially feasible. Patient has been confused and agitated so cm will try again tomorrow to meet with the patient. CM will follow. Date Signed: 09/11/2018 04:48 PM Electronically Signed By:Keiry Valadez LCSW
--- NOTE | 2018-09-11 18:32 | CPEKG ---
Test Reason : OPEN Blood Pressure : / mmHG Vent. Rate : 109 BPM Atrial Rate : 108 BPM P-R Int : 173 ms QRS Dur : 105 ms QT Int : 322 ms P-R-T Axes : 050 -55 013 degrees QTc Int : 434 ms Sinus tachycardia Multiple ventricular premature complexes LAD, consider left anterior fascicular block Confirmed by Heraclio Sainz ([id number]) on 09/11/2018 6:32:22 PM Referred By: Marko Dial Confirmed By:Heraclio Sainz
[2018-09-12] MEDS ORDERED: LORazepam 2 MG/ML INJ IVP SCH (09:00)
[2018-09-12] MEDS ORDERED: POTASSIUM CL 10 MEQ TAB PO ONE ×2 (10:25→19:22)
[2018-09-12] MEDS ORDERED: MAGNESIUM SULF 1 GM/DEXTROSE 100 ML IV ONE (10:27)
[2018-09-12] MEDS: THIAMINE HCL 100 MG TAB PO SCH (11:15)
[2018-09-12] MEDS: ENOXAPARIN 40 MG/0.4 ML SYR SC SCH (11:15)
[2018-09-12] MEDS: FOLIC ACID 1 MG TAB PO SCH (11:15)
--- NOTE | 2018-09-12 11:54 | ASMTCMCOM ---
CM Note CM Note Notes: Spoke with financial counseling and they say patient used to have Medicaid but it is not active. It most likely when patient turned 65. He does not have Medicare and will need to contact [email or web address] to sign up. ([employer] ) Patient will be escalated to Mikala Carmichael and Pamela Vicente for problem solving around placement. PT/OT are recommending SNF placement at discharge. CM will follow. Date Signed: 09/12/2018 11:53 AM Electronically Signed By:Keiry Valadez LCSW
[2018-09-12] MEDS: FAMOTIDINE 20 MG TAB PO SCH (12:06)
--- NOTE | 2018-09-12 12:49 | HOSPPROG ---
Hospitalist Progress Note Assessment/Plan: # etOH abuse and w/d - much improved - currently on librium - will dc tomorrow - cont thiamine # fever - not clearly infective - CT more c/w atelectasis, no abd pain or significant ascites to indicate SBP today - follow closely # tachycardia, sinus - improved today; no evidence of infection # ataxia - very significant, possibly wernickes - cont thiamine - CM involved as dispo will be difficult # dvt ppx - lovenox Subjective: sitting in chair; Objective: Vital Signs Temp Pulse Resp BP Pulse Ox 36.9 C 102 H 16 138/81 H 95 09/12/18 11:48 09/12/18 11:48 09/12/18 11:48 09/12/18 11:48 09/12/18 11:48 Laboratory Results 09/11/18 06:29 09/12/18 05:12 09/11/18 09/12/18 09/13/18 05:59 05:59 05:59 Intake Total 1113 450 Output Total 925 153 Balance 188 297 PT 12.4 SEC (12.0-15.0) 09/05/18 17:03 INR 0.96 (0.83-1.16) 09/05/18 17:[address] Heller - Physical Exam Constitutional: unkempt Cardiovascular: regular rate and rhythym, no murmur, rub, or gallop Respiratory: no respiratory distress, no rales or rhonchi, clear to auscultation Gastrointestinal: soft, non-tender abdomen, no palpable masses, No guarding, No rebound, No distension ICD10 Worksheet Patient Problems: Problems Problem Status Onset Facial contusion Acute Facial abrasion Acute Head injury Acute Alcohol intoxication Acute Cervical strain Acute Fall Acute Alcohol withdrawal Acute
[2018-09-12] MEDS: ACETAMINOPHEN 325 MG TAB PO PRN (20:15)
[2018-09-13] MEDS ORDERED: POTASSIUM CL 10 MEQ TAB PO ONE ×2 (08:14→20:19)
[2018-09-13] MEDS: ENOXAPARIN 40 MG/0.4 ML SYR SC SCH (09:48)
[2018-09-13] MEDS: FOLIC ACID 1 MG TAB PO SCH (09:48)
[2018-09-13] MEDS: THIAMINE HCL 100 MG TAB PO SCH (09:48)
--- NOTE | 2018-09-13 11:32 | HOSPPROG ---
Hospitalist Progress Note Assessment/Plan: # etOH abuse and w/d - much improved - d/c librium. Monitor off Benzo's - cont thiamine # fever: resolved - not clearly infective - CT more c/w atelectasis, no abd pain or significant ascites to indicate SBP - follow closely # tachycardia, sinus - resolved, no e/o infection # ataxia - very significant, possibly wernickes? - cont thiamine - CM involved as dispo will be difficult: awaiting placement #Encephalopathy, possibly metabolic, unclear baseline, possibly due to Wernicke Encephalopathy vs Korsakoff Syndrome vs related to Alcohol WD syndrome vs Hepatic encephalopathy -cont Thiamine at 100mg daily. received high dose thiamine earlier in hospitalization -optimize magnesium which is a appropriate level currentl -will check ammonia, although doubt this is the etiology # dvt ppx - lovenox Pt needs placement. Will likely be medically clear this weekend. Subjective: confused, follows commands, answers some questions Objective: Vital Signs Temp Pulse Resp BP Pulse Ox 37.1 C 98 16 132/77 H 91 L 09/12/18 20:00 09/13/18 08:00 09/13/18 08:00 09/13/18 08:00 09/13/18 08:00 Laboratory Results 09/11/18 06:29 09/13/18 04:35 09/12/18 09/13/18 09/14/18 05:59 05:59 05:59 Intake Total 450 550 Output Total 153 Balance 297 550 PT 12.4 SEC (12.0-15.0) 09/05/18 17:03 INR 0.96 (0.83-1.16) 09/05/18 17:03 - Physical Exam Constitutional: no apparent distress Eyes: PERRL, EOMI Ears, Nose, Mouth, Throat: moist mucous membranes, hearing normal, ears appear normal Cardiovascular: regular rate and rhythym, No edema Respiratory: no respiratory distress, no rales or rhonchi, clear to auscultation Gastrointestinal: normoactive bowel sounds, soft, non-tender abdomen Skin: warm Neurologic: No AAOx3 Psychiatric: interacting appropriately, encephalopathic, No not anxious Lymph, Heme, Immunologic: No petechiae ICD10 Worksheet Patient Problems: Problems Problem Status Onset Alcohol withdrawal Acute Alcohol intoxication Acute Cervical strain Acute Facial abrasion Acute Facial contusion Acute Fall Acute Head injury Acute
--- NOTE | 2018-09-13 16:00 | ASMTCMCOM ---
CM Note CM Note Notes: Patient lives in an apartment and currently has meals on wheels. Spoke with Julianna, patient's coyfiy-an-ane as his brother was unavailable. Julianna states they have been through this cycle with the patient numerous times and they were no longer getting involved. Julianna says patient's friend Salvador Gonzalez at [phone] might be willing to help since he is responsible for helping patient get his current apartment. We would like Salvador to help patient by getting appointment with [facility] and their Medicare counselors who can help with the application process. ([employer] [phone]). Salvador was not answering his phone today. At last d/c we set up home health through [facility], however he did not follow through with his PCP appointment and did not return calls so they could not serve him. (confirmed with [facility]) Patient did not follow through with his appointments with [facility] appointments either. ([facility] confirmed no show) Currently, the d/c plan is home with meals on wheels and if we can get in touch with his friend, request Salvador help him with his Medicare application. Home health care will not be possible without insurance.CM following. Date Signed: 09/13/2018 03:58 PM Electronically Signed By:Keiry Valadez LCSW
[2018-09-13] MEDS: ACETAMINOPHEN 325 MG TAB PO PRN (20:55)
[2018-09-14] MEDS: THIAMINE HCL 100 MG TAB PO SCH (10:07)
[2018-09-14] MEDS: FOLIC ACID 1 MG TAB PO SCH (10:08)
[2018-09-14] MEDS: ENOXAPARIN 40 MG/0.4 ML SYR SC SCH (10:08)
[2018-09-14] MEDS ORDERED: LORazepam 2 MG/ML INJ IVP ONE (13:30)
[2018-09-14] MEDS ORDERED: QUEtiapine FUMARATE 25 MG TAB PO ONE (15:36)
--- NOTE | 2018-09-14 15:38 | HOSPPROG ---
Hospitalist Progress Note Assessment/Plan: # etOH abuse and w/d - much improved - d/c librium. Off Benzo's -no signs of WD - cont thiamine # fever: resolved - not clearly infective - CT more c/w atelectasis, no abd pain or significant ascites to indicate SBP - follow closely # tachycardia, sinus - resolved, no e/o infection # ataxia - very significant, possibly wernickes? - cont thiamine - CM involved as dispo will be difficult: awaiting placement #Encephalopathy, possibly metabolic, unclear baseline, possibly due to Wernicke Encephalopathy vs Korsakoff Syndrome vs related to Alcohol WD syndrome vs Hepatic encephalopathy -cont Thiamine at 100mg daily. received high dose thiamine earlier in hospitalization -optimize magnesium which is a appropriate level currentl -will check ammonia, although doubt this is the etiology #Agitation -trial of antipsychotic # dvt ppx - lovenox Pt needs placement, medically cleared Subjective: some agitation reported today. no cp currently. sitter in room Objective: Vital Signs Temp Pulse Resp BP Pulse Ox 36.9 C 114 H 16 148/91 H 91 L 09/14/18 08:00 09/14/18 08:00 09/14/18 08:00 09/14/18 08:00 09/14/18 08:00 Laboratory Results 09/11/18 06:29 09/14/18 11:38 09/13/18 09/14/18 09/15/18 05:59 05:59 05:59 Intake Total 550 400 Output Total 175 Balance 550 225 PT 12.4 SEC (12.0-15.0) 09/05/18 17:03 INR 0.96 (0.83-1.16) 09/05/18 17:03 - Physical Exam Constitutional: no apparent distress Eyes: PERRL, EOMI Ears, Nose, Mouth, Throat: moist mucous membranes, hearing normal Cardiovascular: regular rate and rhythym, edema Respiratory: no respiratory distress, no rales or rhonchi, clear to auscultation Gastrointestinal: normoactive bowel sounds, soft, non-tender abdomen Skin: warm Neurologic: No AAOx3 Psychiatric: interacting appropriately, not anxious, encephalopathic Lymph, Heme, Immunologic: No petechiae ICD10 Worksheet Patient Problems: Problems Problem Status Onset Alcohol withdrawal Acute Alcohol intoxication Acute Cervical strain Acute Facial abrasion Acute Facial contusion Acute Fall Acute Head injury Acute
[2018-09-14] MEDS ORDERED: POTASSIUM CL 10 MEQ TAB PO ONE (20:51)
[2018-09-14] MEDS ORDERED: POTASSIUM CL 20 MEQ TAB PO ONE (23:45)
[2018-09-14] MEDS: QUEtiapine FUMARATE 25 MG TAB PO SCH (23:48)
[2018-09-15] MEDS: FOLIC ACID 1 MG TAB PO SCH (09:15)
[2018-09-15] MEDS: ENOXAPARIN 40 MG/0.4 ML SYR SC SCH (09:15)
[2018-09-15] MEDS: THIAMINE HCL 100 MG TAB PO SCH (09:15)
[2018-09-15] MEDS: ACETAMINOPHEN 325 MG TAB PO PRN (11:17)
--- NOTE | 2018-09-15 14:50 | HOSPPROG ---
Hospitalist Progress Note Assessment/Plan: # etOH abuse and w/d - much improved - d/c librium. Off Benzo's -no signs of WD - cont thiamine # fever: resolved - not clearly infective - CT more c/w atelectasis, no abd pain or significant ascites to indicate SBP - follow closely # tachycardia, sinus - resolved, no e/o infection # ataxia - very significant, possibly wernickes? - cont thiamine - CM involved as dispo will be difficult: awaiting placement #Encephalopathy, possibly metabolic, unclear baseline, possibly due to Wernicke Encephalopathy vs Korsakoff Syndrome vs related to Alcohol WD syndrome vs Hepatic encephalopathy -cont Thiamine at 100mg daily. received high dose thiamine earlier in hospitalization -optimize magnesium which is a appropriate level currentl -will check ammonia, although doubt this is the etiology #Agitation -trial of antipsychotic # dvt ppx - lovenox Pt needs placement, medically cleared No changes to meds today d/w CM, may need to appoint guardianship Subjective: some intermittent agitation and confusion. calm currently Objective: Vital Signs Temp Pulse Resp BP Pulse Ox 37.0 C 101 H 17 123/86 H 94 09/15/18 08:00 09/15/18 08:00 09/15/18 08:00 09/15/18 08:00 09/15/18 08:00 Microbiology 09/09/18 21:35 Blood Culture - Final Blood 09/09/18 21:20 Blood Culture - Final Blood Laboratory Results 09/11/18 06:29 09/14/18 18:00 09/14/18 09/15/18 09/16/18 05:59 05:59 05:59 Intake Total 400 600 Output Total 175 Balance 225 600 PT 12.4 SEC (12.0-15.0) 09/05/18 17:03 INR 0.96 (0.83-1.16) 09/05/18 17:03 - Physical Exam Constitutional: no apparent distress Eyes: PERRL, EOMI Ears, Nose, Mouth, Throat: moist mucous membranes, hearing normal Cardiovascular: regular rate and rhythym, No edema Respiratory: no respiratory distress, no rales or rhonchi, clear to auscultation Gastrointestinal: normoactive bowel sounds, soft, non-tender abdomen Skin: warm Neurologic: No AAOx3 Psychiatric: interacting appropriately, not anxious Lymph, Heme, Immunologic: No petechiae ICD10 Worksheet Patient Problems: Problems Problem Status Onset Alcohol withdrawal Acute Alcohol intoxication Acute Cervical strain Acute Facial abrasion Acute Facial contusion Acute Fall Acute Head injury Acute
[2018-09-15] MEDS ORDERED: NS 1,000 ML IV ONE (16:30)
[2018-09-15 16:46] LABS: PLATELET COUNT 566 10^3/uL (150-400)
[2018-09-15] MEDS ORDERED: POTASSIUM CL 10 MEQ TAB PO ONE (20:09)
[2018-09-15] MEDS: QUEtiapine FUMARATE 25 MG TAB PO SCH (21:22)
[2018-09-16] MEDS: FOLIC ACID 1 MG TAB PO SCH (09:11)
[2018-09-16] MEDS: ENOXAPARIN 40 MG/0.4 ML SYR SC SCH (09:11)
[2018-09-16] MEDS: THIAMINE HCL 100 MG TAB PO SCH (09:11)
--- NOTE | 2018-09-16 13:24 | ASMTCMCOM ---
CM Note CM Note Notes: CM spoke to MD regarding patient plan of care. Patient reports to MD he wants to leave and that his brother lives nearby and is very supportive. Patient has not applied for Medicare and has lost his Medicaid. CM spoke to his S-I-Hui Levine who was also present with the patien's brother. They state the patient is lying about support. He receives 750 dollars from the State and pays 200.00 for his rent. He does not have any support systems and has been very non-compliant in the past. Physician has placed an order for cognitive evaluation. Per Diana they would be willing to help the patient with applications for Medicare and Medicaid if he remains sober. Plan: TBD Date Signed: 09/16/2018 12:52 PM Electronically Signed By:Charity Brunner RN
--- NOTE | 2018-09-16 16:47 | HOSPPROG ---
Hospitalist Progress Note Assessment/Plan: * Etoh withdrawal -off benzos * Toxic/metabolic encephalopathy -mental status clearing - unclear if he is decisional -consult ST for cog eval * Ataxia, possible Wernicke's -continue thiamine * Macrocytic anemia -likely due to Etoh -check B12 Subjective: Wants to go home today Objective: Vital Signs Temp Pulse Resp BP Pulse Ox 36.7 C 119 H 19 145/84 H 89 L 09/16/18 15:26 09/16/18 15:26 09/16/18 15:26 09/16/18 15:26 09/16/18 15:26 Laboratory Results 09/15/18 16:06 09/16/18 03:49 09/15/18 09/16/18 09/17/18 05:59 05:59 05:59 Intake Total 600 2930 Output Total 850 Balance 600 2080 PT 12.4 SEC (12.0-15.0) 09/05/18 17:03 INR 0.96 (0.83-1.16) 09/05/18 17:03 CTA chest - possible pneumonia, no PE CXR viewed, my personal interpretation is - minimal infiltrate - Physical Exam Constitutional: no apparent distress, not in pain, chronically ill appearing Cardiovascular: regular rate and rhythym, no murmur, rub, or gallop Respiratory: no respiratory distress, no rales or rhonchi, clear to auscultation Gastrointestinal: normoactive bowel sounds, soft, non-tender abdomen, no palpable masses Skin: no rashes or abrasions, no fluctuance, no induration Neurologic: No AAOx3 Psychiatric: encephalopathic, poor insight, poor judgement, poor memory, other ( confabulatory, hard to tell what is joking and what he truely doesn't know), No interacting appropriately, No thought process linear, No agitated ICD10 Worksheet Patient Problems: Problems Problem Status Onset Alcohol withdrawal Acute Alcohol intoxication Acute Cervical strain Acute Facial abrasion Acute Facial contusion Acute Fall Acute Head injury Acute
[2018-09-16] MEDS: QUEtiapine FUMARATE 25 MG TAB PO SCH (20:52)
[2018-09-17 09:32] VITALS: BP 114/74
[2018-09-17] MEDS: FOLIC ACID 1 MG TAB PO SCH (09:34)
[2018-09-17] MEDS: ENOXAPARIN 40 MG/0.4 ML SYR SC SCH (09:34)
[2018-09-17] MEDS: THIAMINE HCL 100 MG TAB PO SCH (09:34)
[2018-09-17] MEDS: ACETAMINOPHEN 325 MG TAB PO PRN (12:50)
--- NOTE | 2018-09-17 13:20 | PDDCSUM ---
Discharge Summary Discharge Summary: Dates of service: 09/05-09/17/2018 Consultations: critical care medicine Procedures performed: chest CTA, head CT Hospital Course: 67 yo M with hx of chronic alcohol abuse and prior episodes of withdrawal admitted with alcohol withdrawal and hospital stay complicated by deconditioning and weakness Discharge Diagnosis: # alcohol use disorder, severe: recommending cessation, unclear if patient plans to remain sober # alcohol withdrawal, severe: initially requiring ICU stay/precedex gtt. Off of benzos now and ready for dc # metabolic encephalopathy: this has largely resolved and patient appears decisional, he likely has chronic cognitive deficits due to longstanding alcohol abuse and possible Wernecke's encephalopathy but appears to be back at baseline # deconditioning: patient relatively weak and appears chronically deconditioned in setting of above, SNF would be preferable dispo for this patient however no insurance and patient without much financial means and prefers to dc home, ambulating independently reasonably well at the time of discharge # macrocytic anemia: stable, due to alcohol abuse Dispo: dc home > 35 min spent in dc, more than half in coordination of dispo plans
--- NOTE | 2018-09-17 15:16 | ASMTLACE ---
[place] Length of stay for Answers: 7-13 days current admission Acuity / Level of Answers: Yes Care: Did the patient have an inpatient admission? # of Emergency department Answers: 5-8 visits in the last 6 months Social determinants Answers: History of substance abuse (ETOH, street drugs, prescription drugs, etc.) Lack of community resources and/or lack of social support (no pcp, lives alone, transportation, radha d) Score: 19 Date Signed: 09/17/2018 03:15 PM Electronically Signed By:GABRIEL Lugo
--- NOTE | 2018-09-17 15:27 | ASMTCMCOM ---
CM Note CM Note Notes: Pt medically stable for d/c, pt no longer on detainer as of today. Pt eager to return home. This CM was unable to reach pt friend Salvador at the phone listed of [phone]. Pt brother Leon and ALEXA Levine updated about pt d/c, they state they have the number to [employer] and plan to help pt apply for Medicare. Voicemail left for [employer] to resume services. Pt reports he has no phone currently and likes it that way because he does not "want to be bothered." Pt declined a [facility] follow up appointment. Pt provided his belongings and he verified he has his house [place]. Pt transported home with [employer] online ordering. Date Signed: 09/17/2018 03:25 PM Electronically Signed By:GABRIEL Lugo
--- NOTE | 2018-09-18 09:52 | ASDISCHSUM ---
Discharge Information Plan Status:Home with No Needs Medically Cleared to Leave: Discharge Date:09/17/2018 02:43 PM CM D/C Disposition: ADT D/C Disposition:Home, Routine, Self-Care Projected Discharge Date:09/16/2018 11:00 AM Transportation at D/C: Discharge Delay Reason: Follow-Up Date:09/16/2018 11:00 AM Discharge Slot: Final Diagnosis: Placement Information Referral Type:*Home Health Care Services Referral ID:[id number] Provider Name: Address 1: Phone Number: Address 2: Fax Number: City: Selection Factors: State: Patient Contact Information Contact Name:FREDDY Relationship: Address: City: [facility] Phone: [facility] Code: Email: Financial Information Financial Class:Self-Pay Primary Plan Desc:SELF PAY Primary Plan Number: Secondary Plan Desc: Secondary Plan Number: Assessment Information LACE LACE Length of stay for Answers: 7-13 days current admission Acuity / Level of Answers: Yes Care: Did the patient have an inpatient admission? # of Emergency department Answers: 5-8 visits in the last 6 months Social determinants Answers: History of substance abuse (ETOH, street drugs, prescription drugs, etc.) Lack of community resources and/or lack of social support (no pcp, lives alone, transportation, radha d) Score: 19 Date Signed: 09/17/2018 03:15 PM Electronically Signed By:GABRIEL Lugo [facility] CM Progress Note CM Note CM Note Notes: CM reviewed pt chart. Pt was asleep when CM attempted to meet with him. 67-year-old male was admitted to the ER for alcohol withdrawal. RN reports that pt stated that he lives at home by himself. It does not appear that he has a PCP. CM to follow. Plan: TBD Date Signed: 09/06/2018 03:19 PM Electronically Signed By:Kiramadhu Espinoza [facility] CM Progress Note CM Note CM Note Notes: Spoke with patient's nurse who states patient is in need of a bus pass. Patient may be ready for discharge today. A bus pass was provided for the patient. Therapies have not assessed yet. Awaiting their recommendations. CM will follow. Date Signed: 09/07/2018 12:05 PM Electronically Signed By:Keiry Valadez LCSW [facility] LORI Progress Note CM Note CM Note Notes: PT/OT have both recommended SNF for patient at discharge. However, patient is self pay and this may not be financially feasible. Patient has been confused and agitated so cm will try again tomorrow to meet with the patient. CM will follow. Date Signed: 09/11/2018 04:48 PM Electronically Signed By:Keiry Valadez LCSW [facility] CM Progress Note CM Note CM Note Notes: Spoke with financial counseling and they say patient used to have Medicaid but it is not active. It most likely when patient turned 65. He does not have Medicare and will need to contact social security to sign up. ([employer] ) Patient will be escalated to Mikala Carmichael and Pamela Vicente for problem solving around placement. PT/OT are recommending SNF placement at discharge. CM will follow. Date Signed: 09/12/2018 11:53 AM Electronically Signed By:Keiry Valadez LCSW [facility] Progress Note CM Note CM Note Notes: Patient lives in an apartment and currently has meals on wheels. Spoke with Julianna, patient's [id number] as his brother was unavailable. Julianna states they have been through this cycle with the patient numerous times and they were no longer getting involved. Julianna says patient's friend Salvador Gonzalez at [phone] might be willing to help since he is responsible for helping patient get his current apartment. We would like Salvador to help patient by getting appointment with [facility] and their Medicare counselors who can help with the application process. ([facility] Medicare [phone]). Salvador was not answering his phone today. At last d/c we set up home health through [facility], however he did not follow through with his PCP appointment and did not return calls so they could not serve him. (confirmed with [facility]) Patient did not follow through with his appointments with [facility] appointments either. ([facility] no show) Currently, the d/c plan is home with meals on wheels and if we can get in touch with his friend, request Salvador help him with his Medicare application. Home health care will not be possible without insurance.CM following. Date Signed: 09/13/2018 03:58 PM Electronically Signed By:Keiry Valadez LCSW [facility] Progress Note CM Note CM Note Notes: CM spoke to MD regarding patient plan of care. Patient reports to MD he wants to leave and that his brother lives nearby and is very supportive. Patient has not applied for Medicare and has lost his Medicaid. CM spoke to his S-Kathya Julianna who was also present with the patien's brother. They state the patient is lying about support. He receives 750 dollars from the [employer] (Inspect Manager) and pays 200.00 for his rent. He does not have any support systems and has been very non-compliant in the past. Physician has placed an order for cognitive evaluation. Per Julianna and [employer] they would be willing to help the patient with applications for Medicare and Medicaid if he remains sober. Plan: TBD Date Signed: 09/16/2018 12:52 PM Electronically Signed By:Charity Brunner RN [facility] Progress Note Note Note Notes: Pt medically stable for d/c, pt no longer on detainer as of today. Pt eager to return home. This CM was unable to reach pt friend Salvador at the phone listed of [phone]. Pt brother Leon and ALEXA Levine updated about pt d/c, they state they have the number to [employer] and plan to help pt apply for Medicare. Voicemail left for [employer] to resume services. Pt reports he has no phone currently and likes it that way because he does not "want to be bothered." Pt declined a [facility] follow up appointment. Pt provided his belongings and he verified he has his house [place]. Pt transported home with [employer]. Date Signed: 09/17/2018 03:25 PM Electronically Signed By:GABRIEL Lugo Intervention Information
== END 2018-09-17 14:43 | disposition home or self-care (01) | DRG 896 ==
LOC: EDUNIT# → F2N 22:52 → F3N 09-13 21:56
PROVIDERS: ADMIT Family Medicine; ATTEND Family Medicine
DX: F10.239 Alcohol dependence with withdrawal, unspecified (principal); G93.41 Metabolic encephalopathy; E86.0 Dehydration; R53.1 Weakness; D53.9 Nutritional anemia, unspecified; K70.10 Alcoholic hepatitis without ascites
CPT/HCPCS: 82607-90; 92507-GN; 92523-GN; 92526-GN; 92610-GN; 96365; 97116-GP; 97162-GP; 97166-GO; 97530-GO; 97530-GP; 97535-GO; G0515-GO; J0295; J0696; J1630; J1650; J2060; J3411; J3475; J3480; Q9967

== ENCOUNTER 2018-10-08 11:47 | Inpatient (IN) | payer OTHER, MEDICAID | END 2018-10-09 11:00 | disposition home or self-care (01) | LOC: F2N 15:26 ==

== ENCOUNTER 2018-10-17 18:10 | Emergency (ER) | payer OTHER, MEDICAID | END 2018-10-17 19:41 | disposition left against medical advice (07) ==

== ENCOUNTER 2018-10-23 13:06 | Emergency (ER) | payer OTHER, MEDICAID | END 2018-10-23 14:50 | disposition home or self-care (01) ==

== ENCOUNTER 2018-10-25 14:00 | Emergency (ER) | payer SELFPAY, MEDICAID | END 2018-10-25 15:00 | disposition home or self-care (01) ==

== ENCOUNTER → 2018-10-28 | Emergency (ER) | payer SELFPAY, MEDICAID ==

== ENCOUNTER 2018-11-04 21:35 | Emergency (ER) | payer MEDICAID | END 2018-11-04 22:07 | disposition home or self-care (01) ==